=== PATIENT | male | born 1965 | race Caucasian/White ===

== ENCOUNTER 2023-07-13 21:34 | Emergency (ER) | payer OTHER, SELFPAY ==
[2023-07-13 21:37] VITALS: BP 140/68; BMI 30.9
[2023-07-13 22:00] VITALS: BP 114/79
--- NOTE | 2023-07-13 22:12 | ED.GENMED ---
History of Present Illness
General
Chief Complaint: Fall
Source: patient
Exam Limitations: none
Time Seen by Provider: 07/13/23 22:01
Travel History
Have you had any contact with someone who has COVID-19?: No
Do you have any symptoms of coronavirus? Fever > 100 degrees, chills, cough, shortness of breath, sore throat, loss of taste or smell, muscle aches, or headache?: No
History of Present Illness
History of Present Illness:
This is a 58 year old male that comes in by ambulance with c/o left hip pain. States that he was moving from his wheelchair to the toilet and he lost his balance. States that his body swang around and he landed beside his wheelchair on the floor.
States that there was no LOC. States that he has pain in the left hip. Denies any fever, chills, chest pain, SOB, abd pain, nausea, vomiting, diarrhea, headache, dizziness, urinaryu burning.
Past History
Past History
ED Past Medical History: Asthma, CAD, COPD, CVA (Left sided paralysis), HTN, Hypercholesterolemia, [place] (X 4), Psychiatric (Anxiety, Bipolar, Depression, Schizo) and Other (Previous stroke with left hemiparesis, Parkinson's, COPD, Neuropathy,
Fracture ortibs, Chronic back pain, )
ED Past Surgical History: Cardiac (Stents X 4), Orthopedic (Neck fusion, Right hand surgery, ) and Tonsilectomy
Social History
Tobacco: Former smoker
Alcohol: None
Personal:
Living: [facility] ([facility])
Family History
Family History: Other (Stroke)
Review of Systems
Review of Systems
All Other Systems: ROS reviewed and negative except as documented in HPI and ROS
Constitutional: Reports no symptoms; Denies fever or chills
EENT: Reports no symptoms
Respiratory: Reports no symptoms; Denies cough or trouble breathing
Cardiac: Reports no symptoms; Denies chest pain
ABD/GI: Reports no symptoms; Denies abdominal pain, nausea, vomiting or diarrhea
: Denies dysuria, frequency or urgency
Musculoskeletal: Reports joint pain (Left hip pain)
Skin: Reports no symptoms
Neurological: Reports no symptoms; Denies dizzy or headache
Psychiatric: Reports no symptoms
Phy Exam
General Physical Exam
General Presentation: no apparent distress
General age: appears stated age
General Skin: warm and dry
General Habitus: debilitated
General Mental: alert
General Hydration: dry mucous membranes
ENT Exam
ENT Exam: TM's normal, pharynx normal and neck supple
Eye Exam
Eye Exam: EOMI
Cardiovascular Exam
Cardiovascular Exam: regular rate/rhythm, no edema and normal peripheral pulses
Pulmonary Exam
Pulmonary Exam: lungs clear, no respiratory distress, no rales, chest non tender, no crackles, no rhonchi, no stridor, no wheezing and no cough
Gastrointestinal Exam
Gastrointestinal Exam: normal bowel sounds, non tender, soft, no organomegaly, no pulsatile mass and non distended
Musculoskeletal Exam
Musculoskeletal Exam: no edema and other (Negative for any discomfort with palpation over the hip or leg. Left leg is stiff but can bed the knee slightly. )
Skin Exam
Skin Exam: normal color, warm/dry, no rash and no petechia
Psychiatric Exam
Psychiatric Exam: normal mood/affect
Course
Orders/Labs/Results
Orders:
Orders
07/13/23 22:11
Hip, Left 2-3 Views [CR Hip - LT w/wo Pel 2-3 Vw*] Urgent
Comment:
Reason For Exam: fALL, PAIN
Include a pelvis x-ray?: Yes
07/13/23 22:14
CT Head W/o Iv Contrast Urgent
Comment:
Reason For Exam: Fall on Plavix
Vital Signs
Initial and Last Documented VS:
Initial Vital Signs
Temp Pulse Resp BP Pulse Ox
97.6 F 58 12 140/68 94
07/13/23 21:37 07/13/23 21:37 07/13/23 21:37 07/13/23 21:37 07/13/23 21:37
Last Documented Vital Signs
Temp Pulse Resp BP Pulse Ox
97.6 F 61 14 134/66 94
07/13/23 21:37 07/13/23 23:06 07/13/23 23:06 07/13/23 23:06 07/13/23 23:06
MDM/Problems Addressed
Differential Diagnosis Includes:
Accidental fall,
MDM/Problems Addressed:
This is a 58 year old male that was going from his wheelchair to the toilet and lost his balance and fell. States that he has pain in the left hip area.
Will get X-ray.
Back into see patient. Explained that the X-ray is negative for any fractures. Patient was able to get OOB and stand on the leg without any pain. Patient chronically uses a wheelchair. IF CT of head is normal, will dischrage patient back to
[facility].
Chronic conditions affecting care:
Left sided Paralysis from CVA
Acute Exacerbation and/or Progression of Chronic Illness:
Left sided paralysis.
*Radiology
Radiology exam reviewed: preliminary read by ED provider (Left hip - negative for fracture or dislocation), radiology read reviewed (CT head night hawk- No acute hemorrhage, midline shift or extra-axial collection. Encephalomalcia suggestive of
prior infarct around anterior right lateral ventricle extends into basal ganglia. Calvarium is intact. Moderate opacification ethmoid air cells bilaterally is new. Old left lamina propria ) and other (CT cont- old left propria fracture. Minimal
mastoid effusions bilaterally)
*Pulse Oximetry
Patient hypoxic: no
*EKG
Interpreted by ED Provider?: NA
Rate: EKG- N/A
*Curriculum And Instruction Specialist Interpretation
Rate: Curriculum And Instruction Specialist- N/A
*Critical Care Note
Total Time (30-74mins, 75-104mins- exclusive of procedures): Not Applicable
ED Attending Note
-
Portions of this chart may have been created with voice recognition software.� Occasional wrong word or��sound alike� substitutions may have occurred due to the inherent limitations of voice recognition software.
Discharge Plan
Departure
Patient Disposition: Home (Routine Discharge)
Date of Disposition: 07/13/23
Time of Disposition: 23:37
Patient with high blood pressure during this ER visit?: Yes
Condition: Good
Covid-19: Not Applicable
Discharge Problem:
Accidental fall
Instructions: Preventing falls in adults, BLOOD PRESSURE
Prescriptions:
No Action
acetaminophen 325 MG tablet
650 mg PO Q6HPRN PRN (Reason: fever > 100.4 and/or mild pain)
aspirin 81 MG tablet,chewable
81 mg PO DAILY
buspirone 5 MG tablet
15 mg PO BID
atorvastatin 80 MG tablet
80 mg PO QPM
venlafaxine 25 MG tablet
75 mg PO DAILY
isosorbide mononitrate 30 MG tablet extended release 24 hr
30 mg PO DAILY
melatonin 3 MG tablet
3 mg PO HS
clopidogrel 75 MG tablet
75 mg PO DAILY
magnesium hydroxide 30 ML suspension
30 ml PO DAILYPRN PRN (Reason: IF NO BM IN 3 DAYS)
tamsulosin 0.4 MG capsule
0.4 mg PO QPM
gemfibrozil 600 MG tablet
600 mg PO BID
bisacodyl [OneLAX Bisacodyl] 10 MG suppository
10 mg [place] DAILYPRN PRN (Reason: IF MOM INEFFECTIVE)
trazodone 150 MG tablet
150 mg PO HS
sodium phosphates [Enema] 135 ML enema
118 ml [place] DAILYPRN PRN (Reason: IF DULCOLAX INEFFECTIVE)
metoprolol succinate 25 MG tablet extended release 24 hr
25 mg PO DAILY
polyvinyl alcohol-povidon(PF) [Refresh Classic (PF)] 10 DROPS dropperette
2 drp BOTH EYES Q8HPRN PRN (Reason: DRY EYES)
bupropion HCl 300 MG tablet extended release 24 hr
300 mg PO DAILY
hydrochlorothiazide 25 MG tablet
25 mg PO DAILY
albuterol sulfate 1 PUFF HFA aerosol inhaler
2 puff inhalation R Q6HPRN PRN (Reason: sob/wheezing)
polyethylene glycol 3350 17 GRAMS powder in packet
17 grams PO DAILYPRN PRN (Reason: constipation)
tizanidine 4 MG tablet
4 mg PO Q6H
ondansetron HCl 4 MG tablet
4 mg PO Q6HPRN PRN (Reason: nausea/vomiting)
sennosides-docusate sodium 1 TABLET tablet
1 tab PO BID
calcium carbonate [Antacid (calcium carbonate)] 1 TABLET tablet,chewable
2 tab PO Q6HPRN PRN (Reason: indigestion)
nystatin [Nyamyc] 60 GM powder
1 applic topical BID
Saccharomyces boulardii 250 MG capsule
250 mg PO BID
Referrals:
Johnny Franco, [Family Provider] - Call in 1-3 days for appt
Activity Restrictions/Additional Instructions:
As discussed, you left hip and pelvis are negative for fracture. Your CT of the head is negative for any acute process. Please use your walker and wheelchair as directed. Follow up with the family doctor for recheck. IF YOU HAVE ANY OTHER CONCERNS
PLEASE RETURN TO THE EMEGENCY ROOM
Interventions
Interventions:
*Risk Screen - Suicide Last Done: 07/13/23 21:37
*General Assessment Last Done: 07/13/23 21:37
*Neglect/Abuse Screening Last Done: 07/13/23 21:37
*ED COVID-19 Vaccine History Last Done: 07/13/23 21:52
ED-Musculoskeletal Assessment Last Done: 07/13/23 21:52
ED- Neurological Assessment Last Done: 07/13/23 21:52
ED-Skin Assessment Last Done: 07/13/23 21:52
[2023-07-13 23:05] VITALS: BP 134/66
[2023-07-13 23:06] VITALS: BP 134/66
[2023-07-14] VITALS: BP 139/61
[2023-07-14 01:00] VITALS: BP 120/44
== END 2023-07-14 01:56 | disposition home or self-care (01) ==
LOC: EMR 21:34
PROVIDERS: EMERGENCY PHYSICIAN Student in an Organized Health Care Education/Training Program; FAMILY PHYSICIAN Internal Medicine
DX: M25.552 Pain in left hip (principal); W19.XXXA Unspecified fall, initial encounter; I10 Essential (primary) hypertension; Z87.891 Personal history of nicotine dependence; Z86.73 Personal history of transient ischemic attack (TIA), and cerebral infarction without residual deficits; Z82.3 Family history of stroke
CPT/HCPCS: 99284; 70450; 73502

== ENCOUNTER 2023-09-14 20:40 | Emergency (ER) | payer OTHER, SELFPAY ==
[2023-09-14 20:43] VITALS: BP 111/73; BMI 29.7
--- NOTE | 2023-09-14 21:18 | ED.GENMED ---
Addendum entered and electronically signed by Kb Cade PA-C 09/19/23 07:23:
Urine culture demonstrates greater than 100,000 colony-forming units of Staphylococcus. The result was sent to the patient's alf facility for their review
Original Note:
History of Present Illness
General
Chief Complaint: Flank Pain
Source: patient
Exam Limitations: none
Time Seen by Provider: 09/14/23 20:43
Nursing documentation reviewed up to this point in time: agreed with
Travel History
Have you had any contact with someone who has COVID-19?: No
Do you have any symptoms of coronavirus? Fever > 100 degrees, chills, cough, shortness of breath, sore throat, loss of taste or smell, muscle aches, or headache?: No
History of Present Illness
History of Present Illness:
58-year-old male from local senior care where is there for rehab originally from [place] had a stroke 15 or 16 years ago with left-sided plegia walks with a walker right flank pain fairly severe has had kidney stones, no fever no nausea vomiting
month or 2 ago had his hematuria tells me an ultrasound that was unremarkable, no heavy lifting no falls
Past History
Past History
ED Past Medical History: Asthma, CAD, COPD, CVA (Left sided paralysis), HTN, Hypercholesterolemia, [place] (X 4), Psychiatric (Anxiety, Bipolar, Depression, Schizo) and Other (Previous stroke with left hemiparesis, Parkinson's, COPD, Neuropathy,
Fracture ortibs, Chronic back pain, )
ED Past Surgical History: Cardiac (Stents X 4), Orthopedic (Neck fusion, Right hand surgery, ) and Tonsilectomy
Social History
Tobacco: Former smoker
Alcohol: None
Drug: None
Personal:
Living: senior care [facility])
Employment: Not employed
Family History
Family History: Other (Stroke)
Phy Exam
Physical Exam
Physical Exam:
Physical Exam
General: Nontoxic chronically ill-appearing male
Neck: No jaundice
Heart: Regular
Lungs: no acute respiratory distress.
Abdomen: Soft no guarding or rebound
Neuro: alert and oriented. Left-sided leg greater than arm weak
Skin: no rash
Psychiatric: cooperative
Extremities: no edema.
Course
Orders/Labs/Results
Orders:
Orders
09/14/23 20:52
Complete Blood Count/With Diff Urgent
Comprehensive Metabolic Panel Urgent
Lipase Urgent
09/14/23 21:00
CT Abd/pel Without Iv Or Oral Urgent
Comment:
Reason For Exam: r flank pain
09/14/23 22:07
Urinalysis Reflex To Culture Urgent
Date Specimen was Collected: 09/14/23
Time Specimen was Collected: 22:04
Urine Microscopic Reflex Cult Urgent
Urine Culture Urgent
BELTRAN Source: U
Specimen Description:
Date Specimen was Collected: 09/14/23
Time Specimen was Collected: 22:04
09/14/23 22:13
0.9% Sodium Chloride 500 ml [Nss] 500 ml IV BOLUS
Oxycodone [Roxicodone] 5 mg PO NOW STA
09/14/23 22:31
Dexamethasone Sod Phosphate [Decadron] 10 mg IV NOW STA
Abnormal Lab Results
09/14/23 09/14/23
20:52 22:07
RBC 4.31 L 10^6/uL
(4.70-6.10)
MCH 32.5 H pg
(27.0-31.0)
Abs Immat Gran (auto) 0.1 H 10^3/uL
(0-0.05)
Absolute Monos (auto) 0.7 H 10^3/uL
(0.1-0.6)
Immature Gran % 0.9 H %
(0-0.5)
Potassium 3.3 L mmol/L
(3.5-5.1)
BUN 28 H mg/dl
(9-20)
Glucose 121 H mg/dl
(70-99)
Urine Nitrite (Reflex) Positive A
(Negative)
Leukocyte Esterase Rfl 1+ A
(Negative)
09/14/23 20:52
09/14/23 20:52
Vital Signs
Initial and Last Documented VS:
Initial Vital Signs
Temp Pulse Resp BP Pulse Ox
98.0 F 61 18 111/73 97
09/14/23 20:43 09/14/23 20:43 09/14/23 20:43 09/14/23 20:43 09/14/23 20:43
Last Documented Vital Signs
Temp Pulse Resp BP Pulse Ox
98.0 F 61 18 111/73 97
09/14/23 20:43 09/14/23 20:43 09/14/23 20:43 09/14/23 20:43 09/14/23 20:43
MDM/Problems Addressed
Differential Diagnosis Includes:
Renal colic muscle strain spasm lumbago radiculopathy
MDM/Problems Addressed:
Right flank pain
Chronic conditions affecting care:
Stroke kidney stone
Chronic conditions affecting care: Neurological disorder and Psychiatric illness
Acute Exacerbation and/or Progression of Chronic Illness: Neurological disorder and Psychiatric illness
*Radiology
Radiology exam reviewed: preliminary read by ED provider
*Pulse Oximetry
Patient hypoxic: no
*Hand Tile Maker Interpretation
Rate: normal
Interpretation: normal
Heart Rate: 78
Rhythm: sinus
*Critical Care Note
Total Time (30-74mins, 75-104mins- exclusive of procedures): Not Applicable
Update Note
Update Note:
Update 10 PM vision radiology report reviewed see scanned copy for details--- in summary no obstructing stone prominent appendix with no secondary signs of appendicitis does have an unchanged L1 compression fracture with retrolisthesis
White blood count is normal, no tenderness of McBurney's point, he tells me he does have a history of herniated disks
Tells me his pain was in the midline at his spine
ED Attending Note
-
Portions of this chart may have been created with voice recognition software.� Occasional wrong word or��sound alike� substitutions may have occurred due to the inherent limitations of voice recognition software.
Discharge Plan
Departure
Patient Disposition: Skilled Nursing/SNF
Date of Disposition: 09/14/23
Time of Disposition: 22:32
Patient with high blood pressure during this ER visit?: No
Condition: Good
Covid-19: Not Applicable
Discharge Problem:
Back pain
Instructions: Low Back Pain ED
Prescriptions:
New
methylprednisolone [Medrol (Ambrose)] 4 mg tablets,dose pack
See Rx Instructions .ROUTE .COMPLEX Qty: 21 0RF
Rx Instructions:
for 6 days
No Action
acetaminophen 325 MG tablet
650 mg PO Q6HPRN PRN (Reason: fever > 100.4 and/or mild pain)
aspirin 81 MG tablet,chewable
81 mg PO DAILY
buspirone 5 MG tablet
15 mg PO BID
atorvastatin 80 MG tablet
80 mg PO QPM
venlafaxine 25 MG tablet
75 mg PO DAILY
isosorbide mononitrate 30 MG tablet extended release 24 hr
30 mg PO DAILY
melatonin 3 MG tablet
3 mg PO HS
clopidogrel 75 MG tablet
75 mg PO DAILY
magnesium hydroxide 30 ML suspension
30 ml PO DAILYPRN PRN (Reason: IF NO BM IN 3 DAYS)
tamsulosin 0.4 MG capsule
0.4 mg PO QPM
gemfibrozil 600 MG tablet
600 mg PO BID
bisacodyl [OneLAX Bisacodyl] 10 MG suppository
10 mg [place] DAILYPRN PRN (Reason: IF MOM INEFFECTIVE)
trazodone 150 MG tablet
150 mg PO HS
sodium phosphates [Enema] 135 ML enema
118 ml [place] DAILYPRN PRN (Reason: IF DULCOLAX INEFFECTIVE)
metoprolol succinate 25 MG tablet extended release 24 hr
25 mg PO DAILY
polyvinyl alcohol-povidon(PF) [Refresh Classic (PF)] 10 DROPS dropperette
2 drp BOTH EYES Q8HPRN PRN (Reason: DRY EYES)
bupropion HCl 300 MG tablet extended release 24 hr
300 mg PO DAILY
hydrochlorothiazide 25 MG tablet
25 mg PO DAILY
albuterol sulfate 1 PUFF HFA aerosol inhaler
2 puff inhalation R Q6HPRN PRN (Reason: sob/wheezing)
polyethylene glycol 3350 17 GRAMS powder in packet
17 grams PO DAILYPRN PRN (Reason: constipation)
tizanidine 4 MG tablet
4 mg PO Q6H
ondansetron HCl 4 MG tablet
4 mg PO Q6HPRN PRN (Reason: nausea/vomiting)
sennosides-docusate sodium 1 TABLET tablet
1 tab PO BID
calcium carbonate [Antacid (calcium carbonate)] 1 TABLET tablet,chewable
2 tab PO Q6HPRN PRN (Reason: indigestion)
nystatin [Nyamyc] 60 GM powder
1 applic topical BID
Saccharomyces boulardii 250 MG capsule
250 mg PO BID
Referrals:
Johnny Franco DO [Family Provider] -
Interventions
Interventions:
*Risk Screen - Suicide Last Done: 09/14/23 20:43
*General Assessment Last Done: 09/14/23 20:43
*Neglect/Abuse Screening Last Done: 09/14/23 20:43
ED- Fall Risk Assessment Last Done: 09/14/23 20:47
CO-Rwlmey-Fvlsjkafwq Assessment Last Done: 09/14/23 20:49
ED-Male Genitourinary Assessment Last Done: 09/14/23 20:50
Discharge Date and Time
Print Language: AMHARIC
[2023-09-14 21:19] LABS: % Basophils 0.8 % (0-2); % Eosinophils 3.8 % (0-6); % Immature Granulocytes 0.9 % (0-0.5); % Monocytes 8.2 % (1.7-9.3); % Neutrophils 54.3 % (42.2-75.2); Absolute Basophils 0.1 10^3/uL (0-0.2); Absolute Eosinophils 0.3 10^3/uL (0-0.7); Absolute Immature Granulocytes 0.1 10^3/uL (0-0.05); Absolute Lymphocytes 2.5 10^3/uL (1.2-3.4); Absolute Monocytes 0.7 10^3/uL (0.1-0.6); Absolute Neutrophils 4.3 10^3/uL (1.4-6.5); Hematocrit 39.5 % (39.0-52.0); Mean Corp Hgb Conc. 35.4 g/dL (33.0-37.0); Mean Corpuscular Hgb 32.5 pg (27.0-31.0); Mean Corpuscular Volume 91.6 fL (80.0-94.0); Mean Platelet Volume 10.3 fL (7.4-10.4); Nucleated Red Blood Cells % 0 % (-); Platelet Count 240 10^3/uL (130-400); Red Blood Cell Count 4.31 10^6/uL (4.70-6.10); Red Cell Dist. Width 12.8 % (11.5-14.5); White Blood Cell Count 7.9 10^3/uL (4.8-10.8)
[2023-09-14 21:30] LABS: ALT (SGPT) 30 U/L (0-50); AST (SGOT) 40 U/L (17-59); Alkaline Phosphatase 49 U/L (38-126); Blood Urea Nitrogen 28 mg/dl (9-20); Calcium 9.6 mg/dl (8.4-10.2); Carbon Dioxide 24 mmol/L (22-30); Chloride 101 mmol/L (98-107); Estimated Creatinine Clearance 119 ml/min; Glucose 121 mg/dl (70-99); Lipase 35 U/L (23-300); Potassium 3.3 mmol/L (3.5-5.1); Sodium 137 mmol/L (135-145); Total Bilirubin 0.7 mg/dl (0.2-1.3); Total Protein 6.8 g/dl (6.3-8.2); eGFR > 60.00
[2023-09-14 22:07] VITALS: BP 120/77
[2023-09-14 22:14] LABS: Urine Albumin Negative (Neg - Trace); Urine Bilirubin Negative (Negative); Urine Character Clear (Clear); Urine Color Yellow; Urine Glucose Negative (Negative); Urine Ketone Negative (Negative); Urine Leukocyte 1+ (Negative); Urine Nitrite Positive (Negative); Urine Occult Blood Negative (Negative); Urine Specific Gravity 1.015 (<1.030); Urine Urobilinogen 1+ (Neg - 1+)
[2023-09-14] MEDS: DECADRON 10 MG IV (22:45)
[2023-09-14] MEDS: ROXICODONE 5 MG PO (22:45)
[2023-09-14] MEDS: NSS 500 IV (22:46)
[2023-09-14 23:00] VITALS: BP 108/62
[2023-09-14 23:11] LABS: Urine Hyaline Cast 0-2 /LPF (0-2); Urine Yeast Few (Negative)
== END 2023-09-15 00:51 ==
LOC: EMR 20:40
PROVIDERS: EMERGENCY PHYSICIAN Emergency Medicine; FAMILY PHYSICIAN Internal Medicine
DX: M54.9 Dorsalgia, unspecified (principal); R10.9 Unspecified abdominal pain; I69.354 Hemiplegia and hemiparesis following cerebral infarction affecting left non-dominant side; I25.10 Atherosclerotic heart disease of native coronary artery without angina pectoris; J45.909 Unspecified asthma, uncomplicated; E78.00 Pure hypercholesterolemia, unspecified; G20.A1 Parkinson's disease without dyskinesia, without mention of fluctuations; I10 Essential (primary) hypertension; F41.9 Anxiety disorder, unspecified; F20.9 Schizophrenia, unspecified; F31.9 Bipolar disorder, unspecified; F32.A Depression, unspecified; G62.9 Polyneuropathy, unspecified; M51.25 Other intervertebral disc displacement, thoracolumbar region; I25.2 Old myocardial infarction; M43.22 Fusion of spine, cervical region; Z95.5 Presence of coronary angioplasty implant and graft; Z87.442 Personal history of urinary calculi; Z87.891 Personal history of nicotine dependence
CPT/HCPCS: 99284; 74176; 80053; 81003; 81015; 83690; 85025; 87086; 87147; 87186

== ENCOUNTER 2023-10-28 01:16 | Emergency (ER) | payer OTHER, SELFPAY ==
[2023-10-28 01:16] VITALS: BMI 29.2
[2023-10-28 01:21] VITALS: BP 105/56
--- NOTE | 2023-10-28 01:25 | ED.GENMED ---
History of Present Illness
<FERNANDO Duarte - Last Filed: 10/28/23 03:24>
General
Chief Complaint: Fall
Source: patient and ambulance crew
Exam Limitations: none
Time Seen by Provider: 10/28/23 01:19
Nursing documentation reviewed up to this point in time: agreed with
History of Present Illness
History of Present Illness:
58 year old male presents for evaluation of a fall. Pt notes that he is a resident a [facility] rehab, and states that approximately 2 hours ago he was transferring from his bed to his wheelchair when he fell forward and hit his head on the floor.
Pt has a small superficial laceration above his left eyebrow. He endorses a small amount of bleeding from the laceration at the time of the fall, but bleeding has been controlled with a BandAid. Pt is on Plavix 75 mg daily. He primarily uses a
wheelchair day-to-day due to history of CVA but occasionally uses a walker. Pt reports that he has fallen 3-4 times over 4 years at [facility]. Pt endorses mild DIAZ, but denies N/V, dizziness, loss of consciousness, photophobia, and changes in
vision. Last tetanus vaccine was 5 years ago per pt.
Past History
<FERNANDO Duarte - Last Filed: 10/28/23 03:24>
Past History
ED Past Medical History: Asthma, CAD, COPD, CVA (Left sided paralysis), HTN, Hypercholesterolemia, [place] (X 4), Psychiatric (Anxiety, Bipolar, Depression, Schizo) and Other (Previous stroke with left hemiparesis, Parkinson's, COPD, Neuropathy,
Fracture ortibs, Chronic back pain, )
ED Past Surgical History: Cardiac (Stents X 4), Orthopedic (Neck fusion, Right hand surgery, ) and Tonsilectomy
Social History
Tobacco: Former smoker
Alcohol: None
Drug: None
Personal:
Living: intermediate ([facility])
Employment: Not employed
Family History
Family History: Other (Stroke)
Review of Systems
<FERNANDO Duarte - Last Filed: 10/28/23 03:24>
Review of Systems
Allergies reviewed?: Yes
Other source history: ambulance crew
Constitutional: Reports no symptoms
EENT: Reports no symptoms
Respiratory: Reports no symptoms
Cardiac: Reports no symptoms
ABD/GI: Reports no symptoms
: Reports no symptoms
Musculoskeletal: Reports no symptoms
Skin: Reports no symptoms
Neurological: Reports headache
Phy Exam
<FERNANDO Duarte - Last Filed: 10/28/23 03:24>
General Physical Exam
General Presentation: well appearing
General age: appears stated age
General Skin: warm
General Habitus: debilitated
General Mental: alert
General Hydration: appears well hydrated
Eye Exam
Eye Exam: PERRL and EOMI
Cardiovascular Exam
Cardiovascular Exam: regular rate/rhythm
Pulmonary Exam
Pulmonary Exam: lungs clear and no respiratory distress
Neurological Exam
Neurological Exam: alert, oriented x3 and motor weakness (L side )
Skin Exam
Skin Exam: laceration (1 cm superficial laceration on pt's L superficial eyebrow.)
Course
<FERNANDO Duarte - Last Filed: 10/28/23 03:24>
Orders/Labs/Results
Orders:
Orders
10/28/23 01:59
CT Head W/o Iv Contrast Urgent
Comment:
Reason For Exam: fall onto head
10/28/23 02:38
Wound Dressing- Treatment ONCE
Location of Wound: left brow
Treatment of Wound: bacitracin bandaid
Vital Signs
Initial and Last Documented VS:
Initial Vital Signs
Temp Pulse Resp BP Pulse Ox
97.6 F 51 16 105/56 96
10/28/23 01:10/28/23 01:10/28/23 01:10/28/23 01:10/28/23 01:21
Last Documented Vital Signs
Temp Pulse Resp BP Pulse Ox
97.6 F 51 16 105/56 96
10/28/23 01:10/28/23 01:10/28/23 01:10/28/23 01:10/28/23 01:21
<Glenda Doss DO - Last Filed: 10/28/23 02:47>
Orders/Labs/Results
Orders:
Orders
10/28/23 01:59
CT Head W/o Iv Contrast Urgent
Comment:
Reason For Exam: fall onto head
10/28/23 02:38
Wound Dressing- Treatment ONCE
Location of Wound: left brow
Treatment of Wound: bacitracin bandaid
Vital Signs
Initial and Last Documented VS:
Initial Vital Signs
Temp Pulse Resp BP Pulse Ox
97.6 F 51 16 105/56 96
10/28/23 01:21 10/28/23 01:10/28/23 01:10/28/23 01:10/28/23 01:21
Last Documented Vital Signs
Temp Pulse Resp BP Pulse Ox
97.6 F 51 16 105/56 96
10/28/23 01:21 10/28/23 01:10/28/23 01:10/28/23 01:10/28/23 01:21
<FERNANDO Duarte - Last Filed: 10/28/23 03:24>
MDM/Problems Addressed
Differential Diagnosis Includes:
left superior eyebrow laceration
<Glenda Doss DO - Last Filed: 10/28/23 02:47>
*Radiology
Radiology exam reviewed: radiology read reviewed (CT of the head shows no acute traumatic finding. There is evidence of an old right MCA territory infarct with associated encephalomalacia. No skull fracture.)
*Pulse Oximetry
Patient hypoxic: no
*Critical Care Note
Total Time (30-74mins, 75-104mins- exclusive of procedures): Not Applicable
<FERNANDO Duarte - Last Filed: 10/28/23 03:24>
Update Note
Update Note:
0245 - CT head w/o contrast shows no acute traumatic findings. No skull fracture.
ED Attending Note
<FERNANDO Duarte - Last Filed: 10/28/23 03:24>
-
Portions of this chart may have been created with voice recognition software.� Occasional wrong word or��sound alike� substitutions may have occurred due to the inherent limitations of voice recognition software.
<Glenda Doss DO - Last Filed: 10/28/23 02:47>
ED Attending Note
Patient seen and examined by attending physician: Yes
I performed the substantive portion of visit, reviewed & personally made and approve the management plan that is documented in note by myself or ROBINSON.: Yes
ED Attending Note:
This is a 58-year-old gentleman, resident of a local intermediate. He has prior history of stroke, CAD, COPD, chronic back pain, chronically maintained on Plavix and low-dose aspirin. After suffering CVA he has chronic left hemiparesis, primarily
wheelchair-bound and tonight while attempting to transfer from the bed to the wheelchair, he leaned forward, lost his balance falling forward striking his left forehead on the ground. No loss of consciousness. He sent to the ED by intermediate for
evaluation.
He does admit to very mild headache and has sustained head superficial laceration left forehead. No active bleeding.
He denies nausea nor vomiting, denies neck nor back pain, denies extremity pain. He denies dizziness nor lightheadedness.
TRAUMA EXAM:
VITAL SIGNS: Vital signs reviewed, cooperative
DISTRESS: No active disease
EYES: Pupils reactive, no orbital trauma
NOSE: No deformity or epistaxis
FACE AND SCALP: Left superior brow has a superficial abrasion with a very superficial 1 cm laceration that has well-approximated wound edges. No active bleeding. Minimal local tenderness to palpation. No hematoma or soft tissue swelling.
External canals no blood
NECK: Supple nontender
BACK: Back nontender, pelvis stable to compression
RESPIRATORY: No distress, breath sounds normal, no tender chest wall
CARDIAC: No murmur, pulses equal and strong
ABDOMEN: Soft nontender bowel sounds normal
SKIN: Skin intact no bleeding, color normal
EXTREMITIES: Nontender
NEUROLOGICAL: Alert, oriented, no motor deficits
PSYCH: Mood affect normal
As patient chronically maintained on Plavix, closed head injury will check CT of the head�concern for intracranial bleeding.
He remains awake and alert. Mild left hemiparesis is stable and unchanged.
Left brow abrasion and very superficial laceration has wound edges that are well-approximated, not in need of surgical repair. Will plan on bacitracin and Band-Aid.
Discharge Plan
Departure
Patient Disposition: Retirement/SNF
Date of Disposition: 10/28/23
Time of Disposition: 02:45
Patient with high blood pressure during this ER visit?: No
Condition: Good
Discharge Problem:
mechanical fall at intermediate, Contusion of forehead
Instructions: Head Injury in Adults (DC), Contusion (DC), Preventing falls in adults
Prescriptions:
No Action
acetaminophen 325 MG tablet
650 mg PO Q6HPRN PRN (Reason: fever > 100.4 and/or mild pain)
aspirin 81 MG tablet,chewable
81 mg PO DAILY
buspirone 5 MG tablet
15 mg PO BID
atorvastatin 80 MG tablet
80 mg PO QPM
venlafaxine 25 MG tablet
75 mg PO DAILY
isosorbide mononitrate 30 MG tablet extended release 24 hr
30 mg PO DAILY
melatonin 3 MG tablet
3 mg PO HS
clopidogrel 75 MG tablet
75 mg PO DAILY
magnesium hydroxide 30 ML suspension
30 ml PO DAILYPRN PRN (Reason: IF NO BM IN 3 DAYS)
tamsulosin 0.4 MG capsule
0.4 mg PO QPM
gemfibrozil 600 MG tablet
600 mg PO BID
bisacodyl [OneLAX Bisacodyl] 10 MG suppository
10 mg OH DAILYPRN PRN (Reason: IF MOM INEFFECTIVE)
trazodone 150 MG tablet
150 mg PO HS
sodium phosphates [Enema] 135 ML enema
118 ml [place] DAILYPRN PRN (Reason: IF DULCOLAX INEFFECTIVE)
metoprolol succinate 25 MG tablet extended release 24 hr
25 mg PO DAILY
polyvinyl alcohol-povidon(PF) [Refresh Classic (PF)] 10 DROPS dropperette
2 drp BOTH EYES Q8HPRN PRN (Reason: DRY EYES)
bupropion HCl 300 MG tablet extended release 24 hr
300 mg PO DAILY
hydrochlorothiazide 25 MG tablet
25 mg PO DAILY
albuterol sulfate 1 PUFF HFA aerosol inhaler
2 puff inhalation R Q6HPRN PRN (Reason: sob/wheezing)
polyethylene glycol 3350 17 GRAMS powder in packet
17 grams PO DAILYPRN PRN (Reason: constipation)
tizanidine 4 MG tablet
4 mg PO Q6H
ondansetron HCl 4 MG tablet
4 mg PO Q6HPRN PRN (Reason: nausea/vomiting)
sennosides-docusate sodium 1 TABLET tablet
1 tab PO BID
calcium carbonate [Antacid (calcium carbonate)] 1 TABLET tablet,chewable
2 tab PO Q6HPRN PRN (Reason: indigestion)
nystatin [Nyamyc] 60 GM powder
1 applic topical BID
Saccharomyces boulardii 250 MG capsule
250 mg PO BID
methylprednisolone [Medrol (Ambrose)] 4 mg tablets,dose pack
See Rx Instructions .ROUTE .COMPLEX Qty: 21 0RF
Rx Instructions:
for 6 days
Referrals:
Johnny Franco, [Family Provider] - Call in 1-3 days for appt
Interventions
Interventions:
*Risk Screen - Suicide Last Done: 10/28/23 01:21
*General Assessment Last Done: 10/28/23 01:21
*Neglect/Abuse Screening Last Done: 10/28/23 01:21
ED- Fall Risk Assessment Last Done: 10/28/23 01:21
*ED COVID-19 Vaccine History Last Done: 10/28/23 01:21
ED-Musculoskeletal Assessment Last Done: 10/28/23 01:35
ED- Neurological Assessment Last Done: 10/28/23 01:35
ED-Skin Assessment Last Done: 10/28/23 01:35
Discharge Date and Time
Print Language: SAMI
[2023-10-28 04:40] VITALS: BP 139/70
== END 2023-10-28 04:40 ==
LOC: EMR 01:16
PROVIDERS: EMERGENCY PHYSICIAN Emergency Medicine; FAMILY PHYSICIAN Internal Medicine
DX: S00.83XA Contusion of other part of head, initial encounter (principal); W19.XXXA Unspecified fall, initial encounter
CPT/HCPCS: 99284; 70450

== ENCOUNTER 2024-01-14 17:33 | Emergency (ER) | payer OTHER, SELFPAY ==
[2024-01-14 17:38] VITALS: BP 131/63
[2024-01-14 17:54] LABS: % Basophils 0.5 % (0-2); % Eosinophils 3.8 % (0-6); % Immature Granulocytes 0.5 % (0-0.5); % Lymphocytes 35.1 % (20.5-51.1); % Monocytes 9.8 % (1.7-9.3); % Neutrophils 50.3 % (42.2-75.2); Absolute Eosinophils 0.2 10^3/uL (0-0.7); Absolute Monocytes 0.6 10^3/uL (0.1-0.6); Absolute Neutrophils 2.8 10^3/uL (1.4-6.5); Hematocrit 41.2 % (39.0-52.0); Hemoglobin 14.5 g/dL (13.0-18.0); Mean Corp Hgb Conc. 35.2 g/dL (33.0-37.0); Mean Corpuscular Hgb 31.3 pg (27.0-31.0); Mean Platelet Volume 9.7 fL (7.4-10.4); Nucleated Red Blood Cells % 0 % (-); Platelet Count 223 10^3/uL (130-400); Red Blood Cell Count 4.63 10^6/uL (4.70-6.10); White Blood Cell Count 5.6 10^3/uL (4.8-10.8)
[2024-01-14 18:00] VITALS: BP 126/77
--- NOTE | 2024-01-14 18:16 | ED.MUSCINJ ---
HPI-Injury
General
Chief Complaint: Fall
Source: patient, ambulance crew and correction
Exam Limitations: none
Time Seen by Provider: 01/14/24 17:36
Nursing documentation reviewed up to this point in time: agreed with
History of Present Illness-Injury
Is this injury a work related problem?: No
Is pt an associate of [facility]?: No
Initial Injury comments:
Patient to ED from [facility] s/p fall. States he was attempting to shuffle sideways between his bed and roomates bed and his feet became tangled and he fell. Hx of CVA. Wears brace on LLE. Hit head on floor. No LOC. Complains of pain to low back, right
hip. Injury occurred just BELT SEWER. to ED via EMS
Past History
Past History
ED Past Medical History: Asthma, CAD, COPD, CVA (Left sided paralysis), HTN, Hypercholesterolemia, [place] (X 4), Psychiatric (Anxiety, Bipolar, Depression, Schizo) and Other (Previous stroke with left hemiparesis, Parkinson's, COPD, Neuropathy,
Fracture ortibs, Chronic back pain, )
ED Past Surgical History: Cardiac (Stents X 4), Orthopedic (Neck fusion, Right hand surgery, ) and Tonsilectomy
Social History
Tobacco: Former smoker
Alcohol: None
Drug: None
Personal:
Living: correction ([facility])
Employment: Not employed
Family History
Family History: Other (Stroke)
Review of Systems
Review of Systems
Allergies reviewed?: Yes
All Other Systems: ROS reviewed and negative except as documented in HPI and ROS
Constitutional: Reports no symptoms
EENT: Reports no symptoms
Respiratory: Reports no symptoms
Cardiac: Reports no symptoms
ABD/GI: Reports no symptoms
: Reports no symptoms
Musculoskeletal: Reports joint pain (pain to low back, right hip)
Skin: Reports no symptoms
Neurological: Reports no symptoms
Psychiatric: Reports no symptoms
Musculoskeletal Injury Exam
Musculoskeletal Injury Exam
Lower Back:
Pain with Movement?: Moderate
Tender to palpation?: Moderate
Soft tissue swelling?: None
External deformity and angulation?: None
Joint effusion?: None
Contusion?: Moderate
Hematoma-local bleeding into tissue?: None
Strain- Sprain- Tear (Connective tissue injury)?: None
Crepitus with movement?: No
Joint instability?: No
Malalignment/deformity?: No
Range of motion: Limited
Distal skin color and temperature: normal-warm & good color
Capillary Refill: normal
Normal distal neurovascular exam?: Yes
Right Hip:
Pain with Movement?: Moderate
Tender to palpation?: Moderate
Soft tissue swelling?: None
External deformity and angulation?: None
Joint effusion?: None
Contusion?: Moderate
Hematoma-local bleeding into tissue?: None
Strain- Sprain- Tear (Connective tissue injury)?: Moderate
Crepitus with movement?: No
Joint instability?: No
Malalignment/deformity?: No
Range of motion: Full
Distal skin color and temperature: normal-warm & good color
Capillary Refill: normal
Normal distal neurovascular exam?: Yes
Phy Exam
General Physical Exam
General Presentation: well appearing
General age: appears stated age
General Skin: warm
General Habitus: normal
General Mental: alert
General Hydration: appears well hydrated
Cardiovascular Exam
Cardiovascular Exam: regular rate/rhythm and no edema
Pulmonary Exam
Pulmonary Exam: no respiratory distress and chest non tender
Neurological Exam
Neurological Exam: alert, oriented x3, CN II-XII intact and speech normal
[place] Coma Scale
Eye Opening: Spontaneous
Verbal Response: Oriented
Motor Response: Obeys Commands
GCS Total Score: 15
Musculoskeletal Exam
Musculoskeletal Exam: neuro vasc intact
Skin Exam
Skin Exam: normal color, warm/dry and no rash
Psychiatric Exam
Psychiatric Exam: normal mood/affect
Injury Course
Orders/Labs/Results
Orders:
Orders
01/14/24 17:48
CBC/With Diff [Complete Blood Count/With Diff] Urgent
CMP [Comprehensive Metabolic Panel] Urgent
01/14/24 17:58
CT Head W/o Iv Contrast Urgent
Comment:
Reason For Exam: trauma
Hip, Right 2-3 Views [CR Hip - RT w/wo Pel 2-3 Vw*] Urgent
Comment:
Reason For Exam: fall,pain
Include a pelvis x-ray?: Yes
01/14/24 18:15
HYDROmorphone [Dilaudid] 0.5 mg IV NOW STA
Ondansetron Injectable [Zofran] 4 mg IV NOW STA
Lumbar Spine Complete, 4 View [CR Lumbar Spine Comp Min 4 Vw*] Urgent
Comment:
Reason For Exam: fall
Abnormal Lab Results
01/14/24
17:48
RBC 4.63 L 10^6/uL
(4.70-6.10)
MCH 31.3 H pg
(27.0-31.0)
Monocytes % 9.8 H %
(1.7-9.3)
Potassium 3.4 L mmol/L
(3.5-5.1)
BUN 22 H mg/dl
(9-20)
01/14/24 17:48
01/14/24 17:48
*Radiology
Radiology exam reviewed: radiology read reviewed
*Pulse Oximetry
Patient hypoxic: no
*Critical Care Note
Total Time (30-74mins, 75-104mins- exclusive of procedures): Not Applicable
ED Attending Note
-
Portions of this chart may have been created with voice recognition software.� Occasional wrong word or��sound alike� substitutions may have occurred due to the inherent limitations of voice recognition software.
Discharge Plan
Departure
Patient Disposition: Intermediate/SNF
Date of Disposition: 01/14/24
Time of Disposition: 20:02
Patient with high blood pressure during this ER visit?: No
Condition: Good
Covid-19: Not Applicable
Discharge Problem:
Back pain, Head injury
Instructions: Head Injury in Adults (DC), Preventing falls in adults, Back Pain
Prescriptions:
No Action
acetaminophen 325 MG tablet
650 mg PO Q6HPRN PRN (Reason: fever > 100.4 and/or mild pain)
aspirin 81 MG tablet,chewable
81 mg PO DAILY
buspirone 5 MG tablet
15 mg PO BID
atorvastatin 80 MG tablet
80 mg PO QPM
venlafaxine 25 MG tablet
75 mg PO DAILY
isosorbide mononitrate 30 MG tablet extended release 24 hr
30 mg PO DAILY
melatonin 3 MG tablet
3 mg PO HS
clopidogrel 75 MG tablet
75 mg PO DAILY
magnesium hydroxide 30 ML suspension
30 ml PO DAILYPRN PRN (Reason: IF NO BM IN 3 DAYS)
tamsulosin 0.4 MG capsule
0.4 mg PO QPM
gemfibrozil 600 MG tablet
600 mg PO BID
bisacodyl [OneLAX Bisacodyl] 10 MG suppository
10 mg MN DAILYPRN PRN (Reason: IF MOM INEFFECTIVE)
trazodone 150 MG tablet
150 mg PO HS
sodium phosphates [Enema] 135 ML enema
118 ml MN DAILYPRN PRN (Reason: IF DULCOLAX INEFFECTIVE)
metoprolol succinate 25 MG tablet extended release 24 hr
25 mg PO DAILY
polyvinyl alcohol-povidon(PF) [Refresh Classic (PF)] 10 DROPS dropperette
2 drp BOTH EYES Q8HPRN PRN (Reason: DRY EYES)
bupropion HCl 300 MG tablet extended release 24 hr
300 mg PO DAILY
hydrochlorothiazide 25 MG tablet
25 mg PO DAILY
albuterol sulfate 1 PUFF HFA aerosol inhaler
2 puff inhalation R Q6HPRN PRN (Reason: sob/wheezing)
polyethylene glycol 3350 17 GRAMS powder in packet
17 grams PO DAILYPRN PRN (Reason: constipation)
tizanidine 4 MG tablet
4 mg PO Q6H
ondansetron HCl 4 MG tablet
4 mg PO Q6HPRN PRN (Reason: nausea/vomiting)
sennosides-docusate sodium 1 TABLET tablet
1 tab PO BID
calcium carbonate [Antacid (calcium carbonate)] 1 TABLET tablet,chewable
2 tab PO Q6HPRN PRN (Reason: indigestion)
nystatin [Nyamyc] 60 GM powder
1 applic topical BID
Saccharomyces boulardii 250 MG capsule
250 mg PO BID
methylprednisolone [Medrol (Ambrose)] 4 mg tablets,dose pack
See Rx Instructions .ROUTE .COMPLEX Qty: 21 0RF
Rx Instructions:
for 6 days
Referrals:
Johnny Franco DO [Family Provider] - Follow up in 2-3 days
Interventions
Interventions:
*Risk Screen - Suicide Last Done: 01/14/24 17:38
*General Assessment Last Done: 01/14/24 17:38
*Neglect/Abuse Screening Last Done: 01/14/24 17:38
*ED COVID-19 Vaccine History Last Done: 01/14/24 17:52
ED-Musculoskeletal Assessment Last Done: 01/14/24 17:52
ED- Neurological Assessment Last Done: 01/14/24 17:52
ED-Skin Assessment Last Done: 01/14/24 17:52
Discharge Date and Time
Print Language: FAROESE
[2024-01-14 18:20] LABS: ALT (SGPT) 42 U/L (0-50); AST (SGOT) 48 U/L (17-59); Albumin 4.2 g/dl (3.5-5.0); Alkaline Phosphatase 71 U/L (38-126); Blood Urea Nitrogen 22 mg/dl (9-20); Calcium 9.8 mg/dl (8.4-10.2); Carbon Dioxide 26 mmol/L (22-30); Chloride 100 mmol/L (98-107); Estimated Creatinine Clearance 104 ml/min; Glucose 84 mg/dl (70-99); Potassium 3.4 mmol/L (3.5-5.1); Sodium 139 mmol/L (135-145); Total Bilirubin 0.5 mg/dl (0.2-1.3); Total Protein 6.7 g/dl (6.3-8.2); eGFR > 60.00
[2024-01-14] MEDS: ZOFRAN 4 MG IV (18:24)
[2024-01-14] MEDS: DILAUDID 0.5 MG IV (18:25)
[2024-01-14 19:26] VITALS: BP 116/66
[2024-01-14 20:24] VITALS: BP 128/70
[2024-01-14 21:00] VITALS: BP 129/72
== END 2024-01-14 22:04 ==
LOC: EMR 17:33
PROVIDERS: Nurse Practitioner; EMERGENCY PHYSICIAN Student in an Organized Health Care Education/Training Program; FAMILY PHYSICIAN Internal Medicine
DX: S09.90XA Unspecified injury of head, initial encounter (principal); M54.50 Low back pain, unspecified; W19.XXXA Unspecified fall, initial encounter; J45.909 Unspecified asthma, uncomplicated; I25.10 Atherosclerotic heart disease of native coronary artery without angina pectoris; J44.9 Chronic obstructive pulmonary disease, unspecified; I10 Essential (primary) hypertension; E78.00 Pure hypercholesterolemia, unspecified; I25.2 Old myocardial infarction; F41.9 Anxiety disorder, unspecified; F31.9 Bipolar disorder, unspecified; G20.A1 Parkinson's disease without dyskinesia, without mention of fluctuations
CPT/HCPCS: 99284; 96374; 96375; 70450; 72110; 73502; 80053; 85025

== ENCOUNTER 2024-03-20 19:53 | Emergency (ER) | payer OTHER, SELFPAY ==
[2024-03-20 19:54] VITALS: BP 122/67
--- NOTE | 2024-03-20 20:38 | ED.GENMED ---
History of Present Illness
General
Chief Complaint: Head Injury
Source: patient
Exam Limitations: none
Time Seen by Provider: 03/20/24 20:37
Nursing documentation reviewed up to this point in time: agreed with
History of Present Illness
History of Present Illness:
58-year-old male with a past medical history of Parkinson's, left-sided paralysis wheelchair-bound at baseline, COPD, bipolar disorder presents emergency department today with concerns of left-sided headache and neck pain following a fall. Patient
reports that he was at [facility] and was transferring himself out of his wheelchair into a chair by the window and he felt his left leg gave out and he lost his footing and he subsequently fell, hitting his head on the left side. Patient states
that the nurse helped him up and put him back into his wheelchair. He subsequently called 911. He did not have any loss of consciousness. He denies chest pain or shortness of breath. He denies any pain in his leg or upper extremity. He does not
have any back pain, abdominal pain.
Past History
Past History
ED Past Medical History: Asthma, CAD, COPD, CVA (Left sided paralysis), HTN, Hypercholesterolemia, MS (X 4), Psychiatric (Anxiety, Bipolar, Depression, Schizo) and Other (Previous stroke with left hemiparesis, Parkinson's, COPD, Neuropathy,
Fracture ortibs, Chronic back pain, )
ED Past Surgical History: Cardiac (Stents X 4), Orthopedic (Neck fusion, Right hand surgery, ) and Tonsilectomy
Social History
Tobacco: Former smoker
Alcohol: None
Drug: None
Personal:
Living: alf ([facility])
Employment: Not employed
Family History
Family History: Other (Stroke)
Review of Systems
Review of Systems
All Other Systems: ROS reviewed and negative except as documented in HPI and ROS
Phy Exam
Physical Exam
Physical Exam:
General: Patient is well appearing and in no acute distress; non-toxic
Skin: Warm and dry, no rashes or lesions
Head: Normocephalic, atraumatic
Eyes: Sclera non-icteric. EOMs intact.
Cardiac: Regular rate and rhythm, no tenderness palpation of external chest wall
Peripheral Vascular: No lower extremity swelling or edema
Pulm: Normal respiratory effort
Abdomen: No abdominal tenderness to palpation, no ecchymosis or signs of
Musculoskeletal: No palpable bony tenderness of the left lower extremity, no pain with passive range of motion
Neuro: CN II-XII intact, no focal neurologic deficits.
Psychiatric: Appropriate mood and affect.
Course
Orders/Labs/Results
Orders:
Orders
03/20/24 20:40
CT Cervical Spine W/o Iv Contr Urgent
Comment:
Reason For Exam: left sided head trauma
CT Head W/o Iv Contrast Urgent
Comment:
Reason For Exam: left sided head trauma
03/20/24 21:27
Acetaminophen [Tylenol] 1,000 mg PO NOW STA
Vital Signs
Initial and Last Documented VS:
Initial Vital Signs
Temp Pulse Resp BP Pulse Ox
98.1 F 72 16 122/67 100
03/20/24 19:54 03/20/24 19:54 03/20/24 19:54 03/20/24 19:54 03/20/24 19:54
Last Documented Vital Signs
Temp Pulse Resp BP Pulse Ox
98.1 F 72 16 122/67 100
03/20/24 19:54 03/20/24 19:54 03/20/24 19:54 03/20/24 19:54 03/20/24 19:54
MDM/Problems Addressed
Differential Diagnosis Includes:
Differentials include tension headache, migraine headache, epidural hematoma , subdural hematoma, cervical strain
MDM/Problems Addressed:
58-year-old male with a past medical history of Parkinson's, left-sided paralysis wheelchair-bound at baseline, COPD, bipolar disorder presents emergency department today with concerns of left-sided headache and neck pain following a fall. He fell
while transferring himself into a chair from a wheelchair. He has left-sided paralysis and lost his footing on the left side. On physical exam, he has no neurologic deficits, no signs of head or neck trauma, does have tenderness palpation in the
cervical spine. He got a CAT scan of the head and neck which showed no acute intracranial abnormality, no evidence of cervical spinal fracture. Admit not indicated, patient stable for discharge, discussed return precautions with patient. Patient
given Tylenol for pain.
Chronic conditions affecting care:
Left-sided paralysis, Parkinson's
*Pulse Oximetry
Patient hypoxic: no
*Critical Care Note
Total Time (30-74mins, 75-104mins- exclusive of procedures): Not Applicable
Data Reviewed
Review of Other/Old Records Reveals: Records (Reviewed previous ER physician documentation from 10/28/2023, patient seen for contusion of head when he fell.)
Source: patient and records
Patient Management
Escalation/DeEscalation of care consider admission/obs:
Admit not indicated, patient stable for discharge, reviewed case with my ER attending
ED Attending Note
-
Portions of this chart may have been created with voice recognition software.� Occasional wrong word or��sound alike� substitutions may have occurred due to the inherent limitations of voice recognition software.
Discharge Plan
Departure
Patient Disposition: Home (Routine Discharge)
Date of Disposition: 03/20/24
Time of Disposition: 22:26
Patient with high blood pressure during this ER visit?: Yes
Condition: Good
Discharge Problem:
Fall, Head trauma
Instructions: Head Injury in Adults (DC), Headache, Adult ED
Prescriptions:
No Action
acetaminophen 325 MG tablet
650 mg PO Q6HPRN PRN (Reason: fever > 100.4 and/or mild pain)
aspirin 81 MG tablet,chewable
81 mg PO DAILY
buspirone 5 MG tablet
15 mg PO BID
atorvastatin 80 MG tablet
80 mg PO QPM
venlafaxine 25 MG tablet
75 mg PO DAILY
isosorbide mononitrate 30 MG tablet extended release 24 hr
30 mg PO DAILY
melatonin 3 MG tablet
3 mg PO HS
clopidogrel 75 MG tablet
75 mg PO DAILY
magnesium hydroxide 30 ML suspension
30 ml PO DAILYPRN PRN (Reason: IF NO BM IN 3 DAYS)
tamsulosin 0.4 MG capsule
0.4 mg PO QPM
gemfibrozil 600 MG tablet
600 mg PO BID
bisacodyl [OneLAX Bisacodyl] 10 MG suppository
10 mg CO DAILYPRN PRN (Reason: IF MOM INEFFECTIVE)
trazodone 150 MG tablet
150 mg PO HS
sodium phosphates [Enema] 135 ML enema
118 ml CO DAILYPRN PRN (Reason: IF DULCOLAX INEFFECTIVE)
metoprolol succinate 25 MG tablet extended release 24 hr
25 mg PO DAILY
polyvinyl alcohol-povidon(PF) [Refresh Classic (PF)] 10 DROPS dropperette
2 drp BOTH EYES Q8HPRN PRN (Reason: DRY EYES)
bupropion HCl 300 MG tablet extended release 24 hr
300 mg PO DAILY
hydrochlorothiazide 25 MG tablet
25 mg PO DAILY
albuterol sulfate 1 PUFF HFA aerosol inhaler
2 puff inhalation R Q6HPRN PRN (Reason: sob/wheezing)
polyethylene glycol 3350 17 GRAMS powder in packet
17 grams PO DAILYPRN PRN (Reason: constipation)
tizanidine 4 MG tablet
4 mg PO Q6H
ondansetron HCl 4 MG tablet
4 mg PO Q6HPRN PRN (Reason: nausea/vomiting)
sennosides-docusate sodium 1 TABLET tablet
1 tab PO BID
calcium carbonate [Antacid (calcium carbonate)] 1 TABLET tablet,chewable
2 tab PO Q6HPRN PRN (Reason: indigestion)
nystatin [Nyamyc] 60 GM powder
1 applic topical BID
Saccharomyces boulardii 250 MG capsule
250 mg PO BID
methylprednisolone [Medrol (Ambrose)] 4 mg tablets,dose pack
See Rx Instructions .ROUTE .COMPLEX Qty: 21 0RF
Rx Instructions:
for 6 days
Referrals:
Devorah Acevedo CRNP [Family Provider] -
Activity Restrictions/Additional Instructions:
CT scan cervical spine showed no acute fracture, CT scan of the head did not show any evidence of bleeding or contusion of the brain.
PLEASE RETURN TO THE EMERGENCY DEPARTMENT SHOULD YOU DEVELOP PERSISTENT HEADACHE, DIFFICULTY SPEAKING, DIFFICULTY SWALLOWING, CHEST PAIN, SHORTNESS OF BREATH, NUMBNESS OR TINGLING IN THE UPPER EXTREMITIES, FAINTING SPELLS, OR ANY OTHER SIGNS OR
SYMPTOMS CONCERNING TO YOU.
Please follow-up primary care in 1 week to ensure the resolution of your symptoms. You can take Tylenol as needed for your headache.
Interventions
Interventions:
*Risk Screen - Suicide Last Done: 03/20/24 19:57
*General Assessment Last Done: 03/20/24 19:57
*Neglect/Abuse Screening Last Done: 03/20/24 19:57
*ED COVID-19 Vaccine History Last Done: 03/20/24 19:57
Discharge Date and Time
Print Language: EMIRATI
[2024-03-20] MEDS: TYLENOL 1000 MG PO (22:32)
[2024-03-20 23:29] VITALS: BMI 25.9
[2024-03-21 03:38] VITALS: BP 112/56
[2024-03-21 05:43] VITALS: BP 114/50
== END 2024-03-21 06:11 | disposition home or self-care (01) ==
LOC: EMR 19:53
PROVIDERS: EMERGENCY PHYSICIAN Emergency Medicine; FAMILY PHYSICIAN Nurse Practitioner
DX: S09.90XA Unspecified injury of head, initial encounter (principal); M54.2 Cervicalgia; W05.0XXA Fall from non-moving wheelchair, initial encounter; G20.A1 Parkinson's disease without dyskinesia, without mention of fluctuations; E78.00 Pure hypercholesterolemia, unspecified; I10 Essential (primary) hypertension; I25.10 Atherosclerotic heart disease of native coronary artery without angina pectoris; I25.2 Old myocardial infarction; I69.354 Hemiplegia and hemiparesis following cerebral infarction affecting left non-dominant side; J44.89 Other specified chronic obstructive pulmonary disease; Z87.891 Personal history of nicotine dependence; Z95.5 Presence of coronary angioplasty implant and graft; Z99.3 Dependence on wheelchair
CPT/HCPCS: 99284; 70450; 72125

== ENCOUNTER 2024-04-13 00:04 | Emergency (ER) | payer OTHER, SELFPAY ==
[2024-04-13 00:14] VITALS: BMI 25.6
[2024-04-13 00:19] VITALS: BP 139/65
[2024-04-13 02:11] VITALS: BP 142/102
--- NOTE | 2024-04-13 02:28 | ED.GENMED ---
History of Present Illness
General
Chief Complaint: Fall
Source: patient
Exam Limitations: none
Time Seen by Provider: 04/13/24 00:51
Nursing documentation reviewed up to this point in time: agreed with
History of Present Illness
History of Present Illness:
Patient is a 58-year-old male presents to the emergency department after falling out of his wheelchair and striking the left side of his head. Patient has a history of a fusion of his neck and 2003. Patient has chronic neck pain and continues to
complain of pain. Patient denies loss of consciousness. Patient denies chest pain, abdominal pain, lower extremity pain or upper extremity pain.
Past History
Past History
ED Past Medical History: Asthma, CAD, COPD, CVA (Left sided paralysis), HTN, Hypercholesterolemia, [place] (X 4), Psychiatric (Anxiety, Bipolar, Depression, Schizo) and Other (Previous stroke with left hemiparesis, Parkinson's, COPD, Neuropathy,
Fracture ortibs, Chronic back pain, )
ED Past Surgical History: Cardiac (Stents X 4), Orthopedic (Neck fusion, Right hand surgery, ) and Tonsilectomy
Social History
Tobacco: Former smoker
Alcohol: None
Drug: None
Personal:
Living: jail ([facility])
Employment: Not employed
Family History
Family History: Other (Stroke)
Review of Systems
Review of Systems
All Other Systems: Not applicable
Phy Exam
Physical Exam
Physical Exam:
Physical Exam
General: No apparent distress, alert and appropriate, well nourished, well hydrated
HENT: Normocephalic with tenderness along the left aspect and a 1.5 cm laceration above the left eyebrow, supple with no tracheal deviation or contusion
Eyes: Clear sclera, conjuctiva without injection, extraocular muscles intact
Heart: Regular rhythm and rate. No S3, S4. No murmur. No NVD
Lungs: No respiratory distress, no stridor, lung sounds clear and equal bilaterally, chest wall symmetrical and nontender
Abdomen: Soft, nontender, BS good
Neuro: Alert and usual mental status, CN II - XII intact, no motor focality
Skin: Laceration as stated above
Psychiatric: well kept. interactive and cooperative
Extremities: No edema, cyanosis, tenderness
Musculoskeletal: Diffuse cervical spine tenderness. No thoracic or lumbar spine tenderness
Course
Orders/Labs/Results
Orders:
Orders
04/13/24 02:27
CT Cervical Spine W/o Iv Contr Urgent
Comment:
Reason For Exam: Fall with tenderness
04/13/24 02:28
CT Head W/o Iv Contrast Urgent
Comment:
Reason For Exam: Fall out of wheelchair with diffuse tenderness abo
04/13/24 02:32
Tetanus/Diphth/Acelpertussis [Adacel] 0.5 ml IM .ONCE ONE
Vital Signs
Initial and Last Documented VS:
Initial Vital Signs
Temp Pulse Resp BP Pulse Ox
97.3 F 63 20 139/65 98
04/13/24 00:19 04/13/24 00:19 04/13/24 00:19 04/13/24 00:19 04/13/24 00:19
Last Documented Vital Signs
Temp Pulse Resp BP Pulse Ox
97.3 F 67 12 142/102 99
04/13/24 00:19 04/13/24 02:15 04/13/24 02:15 04/13/24 02:11 04/13/24 02:15
Procedures
Laceration Closure
Left Superior Eye brow:
Status of Wound: clean
Size of Wound in cm: 1.5
Description of Wound Edges: sharp
Preparation: cleaned with saline
Revision/Debridement: routine- no revision
Wound exploration: explored to base- no FB
Type of Closure: Dermabond-skin glue
Number of sutures: 0
*Radiology
Radiology exam reviewed: preliminary read by ED provider (nothing acute)
*Pulse Oximetry
Patient hypoxic: no
*EKG
Interpreted by ED Provider?: NA
*Team Manager Interpretation
Rate: Team Manager- N/A
*Critical Care Note
Total Time (30-74mins, 75-104mins- exclusive of procedures): Not Applicable
ED Attending Note
-
Portions of this chart may have been created with voice recognition software.� Occasional wrong word or��sound alike� substitutions may have occurred due to the inherent limitations of voice recognition software.
Discharge Plan
Departure
Patient Disposition: [facility]/SNF
Date of Disposition: 04/13/24
Time of Disposition: 03:14
Patient with high blood pressure during this ER visit?: Yes
Condition: Good
Covid-19: Not Applicable
Discharge Problem:
Forehead laceration, Minor closed head injury
Instructions: Laceration Repair With Glue (DC), Head Injury in Adults (DC), Preventing falls in adults, BLOOD PRESSURE
Prescriptions:
No Action
acetaminophen 325 MG tablet
650 mg PO Q6HPRN PRN (Reason: fever > 100.4 and/or mild pain)
aspirin 81 MG tablet,chewable
81 mg PO DAILY
buspirone 5 MG tablet
15 mg PO BID
atorvastatin 80 MG tablet
80 mg PO QPM
venlafaxine 25 MG tablet
75 mg PO DAILY
isosorbide mononitrate 30 MG tablet extended release 24 hr
30 mg PO DAILY
melatonin 3 MG tablet
3 mg PO HS
clopidogrel 75 MG tablet
75 mg PO DAILY
magnesium hydroxide 30 ML suspension
30 ml PO DAILYPRN PRN (Reason: IF NO BM IN 3 DAYS)
tamsulosin 0.4 MG capsule
0.4 mg PO QPM
gemfibrozil 600 MG tablet
600 mg PO BID
bisacodyl [OneLAX Bisacodyl] 10 MG suppository
10 mg AR DAILYPRN PRN (Reason: IF MOM INEFFECTIVE)
trazodone 150 MG tablet
150 mg PO HS
sodium phosphates [Enema] 135 ML enema
118 ml AR DAILYPRN PRN (Reason: IF DULCOLAX INEFFECTIVE)
metoprolol succinate 25 MG tablet extended release 24 hr
25 mg PO DAILY
polyvinyl alcohol-povidon(PF) [Refresh Classic (PF)] 10 DROPS dropperette
2 drp BOTH EYES Q8HPRN PRN (Reason: DRY EYES)
bupropion HCl 300 MG tablet extended release 24 hr
300 mg PO DAILY
hydrochlorothiazide 25 MG tablet
25 mg PO DAILY
albuterol sulfate 1 PUFF HFA aerosol inhaler
2 puff inhalation R Q6HPRN PRN (Reason: sob/wheezing)
polyethylene glycol 3350 17 GRAMS powder in packet
17 grams PO DAILYPRN PRN (Reason: constipation)
tizanidine 4 MG tablet
4 mg PO Q6H
ondansetron HCl 4 MG tablet
4 mg PO Q6HPRN PRN (Reason: nausea/vomiting)
sennosides-docusate sodium 1 TABLET tablet
1 tab PO BID
calcium carbonate [Antacid (calcium carbonate)] 1 TABLET tablet,chewable
2 tab PO Q6HPRN PRN (Reason: indigestion)
nystatin [Nyamyc] 60 GM powder
1 applic topical BID
Saccharomyces boulardii 250 MG capsule
250 mg PO BID
methylprednisolone [Medrol (Ambrose)] 4 mg tablets,dose pack
See Rx Instructions .ROUTE .COMPLEX Qty: 21 0RF
Rx Instructions:
for 6 days
Referrals:
Johnny Franco, [Family Provider] - Follow up in 5-7 days
Activity Restrictions/Additional Instructions:
Continue present medications and therapy.
Interventions
Interventions:
*Risk Screen - Suicide Last Done: 04/13/24 00:26
*General Assessment Last Done: 04/13/24 00:19
*Neglect/Abuse Screening Last Done: 04/13/24 00:19
ED- Fall Risk Assessment Last Done: 04/13/24 00:19
ED-Musculoskeletal Assessment Last Done: 04/13/24 00:19
ED- Neurological Assessment Last Done: 04/13/24 00:19
ED-Skin Assessment Last Done: 04/13/24 00:19
Discharge Date and Time
Print Language: KOREAN
[2024-04-13] MEDS: ADACEL 0.5 ML IM (02:41)
[2024-04-13 03:09] VITALS: BP 138/70
[2024-04-13 04:00] VITALS: BP 148/64
[2024-04-13 05:00] VITALS: BP 157/76
--- NOTE | 2024-04-13 05:25 | EDRN ---
Report called to second floor nursing station [facility]
--- NOTE | 2024-04-13 05:54 | EDRN ---
Pt incontinent of urine - perineal care provided and diaper placed. Pt's clothing in bag is damp, pt put in hospital gown to go home. Report given to Acute Care.
== END 2024-04-13 06:01 ==
LOC: EMR 00:04
PROVIDERS: EMERGENCY PHYSICIAN Emergency Medicine; FAMILY PHYSICIAN Internal Medicine
DX: S01.81XA Laceration without foreign body of other part of head, initial encounter (principal); W05.0XXA Fall from non-moving wheelchair, initial encounter; G89.29 Other chronic pain; M54.2 Cervicalgia; E78.00 Pure hypercholesterolemia, unspecified; G20.A1 Parkinson's disease without dyskinesia, without mention of fluctuations; I10 Essential (primary) hypertension; I25.10 Atherosclerotic heart disease of native coronary artery without angina pectoris; I25.2 Old myocardial infarction; I69.354 Hemiplegia and hemiparesis following cerebral infarction affecting left non-dominant side; Z87.891 Personal history of nicotine dependence; Z95.5 Presence of coronary angioplasty implant and graft; Z23 Encounter for immunization
CPT/HCPCS: 12011; 99284; 90471; 70450; 72125; 90715

== ENCOUNTER 2024-07-28 18:35 | Observation (INO) | payer OTHER, SELFPAY ==
[2024-07-28] VITALS (24 sets, daily range): BP systolic 116–152; BP diastolic 57–88; BMI 24.8; BMI 23.6
--- NOTE | 2024-07-28 15:17 | ED.CVA ---
History of Present Illness
General
Chief Complaint: CVA/TIA Symptoms
Source: patient and ambulance crew
Exam Limitations: none
Time Seen by Provider: 07/28/24 15:15
Onset of Stroke Symptoms
Onset of symptoms known: No
Time pt last seen normal is known: Yes
Date last time pt seen normal: 07/28/24
Time last time pt seen normal: 08:00
History of Present Illness
History of Present Illness:
See MDM
Past History
Past History
ED Past Medical History: Asthma, CAD, COPD, CVA (Left sided paralysis), HTN, Hypercholesterolemia, CT (X 4), Psychiatric (Anxiety, Bipolar, Depression, Schizo) and Other (Previous stroke with left hemiparesis, Parkinson's, COPD, Neuropathy,
Fracture ortibs, Chronic back pain, )
ED Past Surgical History: Cardiac (Stents X 4), Orthopedic (Neck fusion, Right hand surgery, ) and Tonsilectomy
Social History
Tobacco: Former smoker
Alcohol: None
Drug: None
Personal:
Living: alf [facility])
Employment: Not employed
Family History
Family History: Other (Stroke)
Phy Exam
Physical Exam
Physical Exam:
See MDM
Scores
NIH Stroke Score
Level of Consciousness: 0 - Alert
LOC Questions: 0-Answers both correctly
LOC Commands: 0-Performs both correctly
Best Horizontal Gaze: 0-Normal
Visual Gibson: 0=Normal, no visual loss
Facial Palsy: 0=Normal, symmetrical
Motor - Right Arm: 0=No drift 10 seconds
Motor - Left Arm: 4=No movement
Motor - Right Le-Drift < 5 seconds
Motor - Left Le-No movement
Limb Ataxia: 0-Absent
Sensation: 0-Normal
Best Language: 0-No aphasia
Dysarthria: 0-Normal
Extinction and Inattention: 0-No abnormality
Total Score:: 9
Course
Orders/Labs/Results
Orders:
Orders
07/28/24 15:15
CT HEAD STROKE ALERT W/o Cont Urgent
Reason For Exam: slurred speech
CT HEAD/NECK ANG STROKE ALERT Urgent
Comment:
Reason For Exam: slurred speech
NEUROLOGY CONSULT Urgent
Consulting Provider: Red Santos
Was physician already notified: Yes
Cardiac Monitoring- Treatment ONCE
07/28/24 15:16
Electrocardiogram (*1) Stat
Reason for Study: Other
Other Reason for Exam: neuro symptoms
EKG- Treatment ONCE
07/28/24 15:33
Basic Metabolic Panel Urgent
Complete Blood Count/With Diff Urgent
PTT Urgent
Prothrombin Time Urgent
Troponin I Urgent
07/28/24 16:24
Urinalysis Reflex To Culture Urgent
Urine Drug Abuse Screen Urgent
Abnormal Lab Results
07/28/24
15:33
RBC 3.88 L 10^6/uL
(4.70-6.10)
Hgb 12.4 L g/dL
(13.0-18.0)
Hct 35.3 L %
(39.0-52.0)
MCH 32.0 H pg
(27.0-31.0)
RDW 14.8 H %
(11.5-14.5)
PT 16.5 H Sec
(11.4-14.6)
Chloride 111 H mmol/L
(98-107)
Carbon Dioxide 20 L mmol/L
(22-30)
07/28/24 15:33
07/28/24 15:33
Vital Signs
Initial and Last Documented VS:
Initial Vital Signs
Temp Pulse BP Pulse Ox
98.8 F 75 129/69 97
07/28/24 15:15 07/28/24 15:15 07/28/24 15:15 07/28/24 15:15
Last Documented Vital Signs
Temp Pulse Resp BP Pulse Ox
98.8 F 79 19 129/69 97
07/28/24 15:15 07/28/24 15:45 07/28/24 15:45 07/28/24 15:19 07/28/24 15:51
MDM/Problems Addressed
Differential Diagnosis Includes:
HPI and MDM Narrative:
59-year-old male presenting for evaluation of a prearrival stroke alert. Per EMS, patient resides at a nursing facility. He apparently was last known normal at 8 AM. Nursing staff noted that he had slurred speech and was slumped over. It is not
certain when they noticed the symptoms. He has a prior history of stroke with residual left hemiparesis. On arrival, EMS stating that his slurred speech is resolved. Patient does acknowledge that he is feeling better. Regardless, prearrival
stroke alert was called and patient met by myself and nursing staff and neurology on arrival
Physical exam
General: Well appearing and non-toxic
HEENT: protecting airway
Neck: appears supple
CV: No evidence of cyanosis. Regular rate and rhythm
Resp: No accessory muscle use
Abd: Non-distended
Extremities: No deformities
Neuro: Chronic left leg and arm paralysis. Weakness noted to right leg. No dysarthria
Psych: Normal affect
Skin: Intact
Problems Addressed including Acute and Chronic Conditions affecting care:
1. Slurred speech
Acuity: acute
Prognosis: stable
Details: Symptoms improving. Neurology at bedside. Will obtain CTA
Updates
Given duration of symptoms, patient is not a TNK candidate.
CTA shows chronic appearing findings. Case further discussed with neurology. From a neurology standpoint, no further workup needed given that he is already medically optimized. I did consider sending him home but patient still difficult to
arouse. Will obtain UA and admit
Differential Diagnosis (but not limited to): TIA, stroke, intracranial hemorrhage
Testing considered: Urinalysis
Drug therapy (if applicable): OTC meds, please see d/c instruction regarding Rx drugs
Amount and/or Complexity of Data Reviewed
Clinical info obtained from: Patient
External data reviewed: N/A
Labs I independently reviewed (but not limited to): White blood cell count normal
Radiology: The CT scan was personally and independently reviewed. In addition, official CT report reviewed.
Pulse Ox: not hypoxic
EKG independently reviewed: Sinus rhythm, left axis, left bundle branch block, no STEMI
Internal Sales Engineer: Sinus rhythm
Critical Care: N/A
Risk of Complication:
Social Determinants of health: Good social support
Discussed with other providers: Neurologist, hospitalist
Escalation of Care includes Admit/Obs: Given the altered mental status change, will admit
Occasional wrong word or 'sound a like' substitutions may have occurred due to the inherent limitations of voice recognition software. Read the chart carefully and recognize, using context, where substitutions have occurred.
*Critical Care Note
Total Time (30-74mins, 75-104mins- exclusive of procedures): Not Applicable
ED Attending Note
-
Portions of this chart may have been created with voice recognition software.� Occasional wrong word or��sound alike� substitutions may have occurred due to the inherent limitations of voice recognition software.
Discharge Plan
Departure
Patient Disposition: Admit
Date of Disposition: 07/28/24
Time of Disposition: 16:27
Admit to: Telemetry
Presentation/result/management discussed w/ accepting MD/DO: Hospitalist
Discharge Problem:
Brain TIA, Altered mental status
Prescriptions:
No Action
acetaminophen 325 MG tablet
650 mg PO Q6HPRN PRN (Reason: fever > 100.4 and/or mild pain)
aspirin 81 MG tablet,chewable
81 mg PO DAILY
atorvastatin 80 MG tablet
80 mg PO QPM
clopidogrel 75 MG tablet
75 mg PO DAILY
magnesium hydroxide 30 ML suspension
30 ml PO DAILYPRN PRN (Reason: IF NO BM IN 3 DAYS)
tamsulosin 0.4 MG capsule
0.4 mg PO HS
gemfibrozil 600 MG tablet
600 mg PO BID
bisacodyl [OneLAX Bisacodyl] 10 MG suppository
10 mg AR DAILYPRN PRN (Reason: IF MOM INEFFECTIVE)
Enema 135 ML enema
118 ml AR DAILYPRN PRN (Reason: IF DULCOLAX INEFFECTIVE)
polyethylene glycol 3350 17 GRAMS powder in packet
17 grams PO DAILY
sennosides-docusate sodium 1 TABLET tablet
1 tab PO BID
calcium carbonate [Antacid (calcium carbonate)] 1 TABLET tablet,chewable
2 tab PO Q6HPRN PRN (Reason: indigestion)
venlafaxine [Effexor XR] 75 mg Capsule,Extended Release 24hr
75 mg PO DAILY
lidocaine 4 % Adhesive Patch,Medicated
1 patch TOPICAL DAILY
cetirizine [Zyrtec] 10 mg Tablet
10 mg PO DAILY
acetaminophen [Tylenol Extra Strength] 500 mg Tablet
1,000 mg PO DAILY
clindamycin phosphate 1 % Gel
1 applic TOPICAL BID
baclofen 10 mg Tablet
10 mg PO TID
gabapentin 300 mg Capsule
300 mg PO TID
celecoxib 100 mg Capsule
100 mg PO BID
fluticasone propionate [Flonase] 50 mcg/actuation Allison,Suspension
1 spray INTRANASAL DAILY
bupropion HCl [Wellbutrin XL] 150 mg Tablet Extended Release 24 Hr
150 mg PO HS
topiramate [Topamax] 50 mg Tablet
50 mg PO BID
[place] Saline Gel Allison,Non-Aerosol
1 spray INTRANASAL [id number] PRN (Reason: dryness)
cholecalciferol (vitamin D3) [Vitamin D3] 25 mcg (1,000 unit) Tablet
50 mcg PO DAILY
diclofenac sodium [Voltaren] 1 % Gel
2 g TOPICAL HS
Nurtec ODT 75 mg Tablet,Disintegrating
75 mg PO DAILYPRN PRN (Reason: migraine)
Interventions
Interventions:
*General Assessment Last Done: 07/28/24 15:51
*Neglect/Abuse Screening Last Done: 07/28/24 15:51
*ED- Fall Risk Assessment Last Done: 07/28/24 15:51
*ED COVID-19 Vaccine History Last Done: 07/28/24 15:51
ED- Pulmonary Assessment Last Done: 07/28/24 15:51
ED- Neurological Assessment Last Done: 07/28/24 15:51
ED- Cardiac Assessment Last Done: 07/28/24 15:51
Discharge Date and Time
Print Language: ESTONIAN
[2024-07-28 15:45] LABS: % Basophils 0.6 % (0-2); % Eosinophils 3.2 % (0-6); % Immature Granulocytes 0.3 % (0-0.5); % Lymphocytes 23.7 % (20.5-51.1); % Monocytes 8.3 % (1.7-9.3); % Neutrophils 63.9 % (42.2-75.2); Absolute Eosinophils 0.2 10^3/uL (0-0.7); Absolute Lymphocytes 1.5 10^3/uL (1.2-3.4); Absolute Monocytes 0.5 10^3/uL (0.1-0.6); Absolute Neutrophils 3.9 10^3/uL (1.4-6.5); Hematocrit 35.3 % (39.0-52.0); Hemoglobin 12.4 g/dL (13.0-18.0); Mean Corp Hgb Conc. 35.1 g/dL (33.0-37.0); Mean Platelet Volume 9.7 fL (7.4-10.4); Nucleated Red Blood Cells % 0 % (-); Platelet Count 244 10^3/uL (130-400); Red Blood Cell Count 3.88 10^6/uL (4.70-6.10); Red Cell Dist. Width 14.8 % (11.5-14.5); White Blood Cell Count 6.2 10^3/uL (4.8-10.8)
[2024-07-28 15:51] LABS: INR 1.31; PT 16.5 Sec (11.4-14.6)
[2024-07-28 15:52] LABS: APTT 31.5 Sec (23.4-35.0)
[2024-07-28 16:04] LABS: Blood Urea Nitrogen 17 mg/dl (9-20); Calcium 9.5 mg/dl (8.4-10.2); Carbon Dioxide 20 mmol/L (22-30); Chloride 111 mmol/L (98-107); Estimated Creatinine Clearance 103 ml/min; Glucose 88 mg/dl (70-99); Sodium 141 mmol/L (135-145); eGFR > 60.00
[2024-07-28 16:05] LABS: Troponin I 0.021 ng/ml
--- NOTE | 2024-07-28 18:07 | HPS.HSE ---
Addendum entered and electronically signed by Emy Gonzalez MD 07/28/24 19:23:
I personally performed a history and physical exam of the patient and discussed management with the resident. I reviewed the resident's note and agree with the documented findings and plan of care HPI/CC.
GENERAL: chronically ill male in no apparent distress--more responsive to me than to Dr. Telles
HEENT: NC/AT dry mucus membranes
HEART: regular rate and rhythm, +S1, +S2, + gallop
LUNGS : clear to auscultation bilaterally
ABDOM: soft, nontender, nondistended, + bowel sounds
EXT: no cyanosis, clubbing, or edema
NEUROLOGIC: left sided hemiparesis
Altered mental status with unknown etiology--possible new stroke (100% right ICA occlusion, 80% left ICA occlusion)--post ictal from seizure? (none witnessed)--medication effect (took someone else's?)--CO2 retention?--agree with urine tox screen,
ABG, CXR--check MRI brain
Slurring of speech/prior history of stroke with residual left hemiparesis--came as pre hospital stroke alert--Slurring of speech resolved on arrival to ED--apprec neuro--cont asa/plavix/statin--PT/OT/speech
Dehydration--Dry mucous membrane on exam--D5 normal saline
Anxiety/depression--Continue home oral medications- venlexafine, wellbutrin
Schizoaffective disorder--Continue home meds
BPH--Continue tamsulosin
Chronic migraine--Continue Nurtec plus Tylenol, Topamax
Chronic back pain--Hold baclofen for now--cont tylenol
Chronic constipation--Continue home bowel regime
code status--Full code
DVT proph--Lovenox
Original Note:
Family Physician
-
Family Physician: Johnny Franco, DO
Chief Complaint
-
Slurred speech
History of Present Illness
59-year-old male with history of stroke with residual left hemiparesis presented from [facility] to ED with slurring of speech. History is obtained from ED note, as patient is unable to provide history.
He was apparently normal at 8 AM this morning. Nursing staff noted that he had a slurred speech and was slumped over. On arrival to the ED his slurred speech resolved. Prearrival stroke alert was called and neurology was consulted. Workup done
included head CT which was unremarkable. 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
On patient interview, he is oriented to place, his name, his date of . He is arousable to physical stimuli and when called his name.
Medical History
Past Medical History
Past Medical History: Reports Other (Asthma COPD History of CVA (Left sided paralysis) HTN Hypercholesterolemia History of CAD with 4 stent placement , Anxiety/depression Schizoaffective disorder Other chronic back pain Neuropathy)
Past Surgical History: Reports Cardiac (stent x 4 ), Orthopedic (Neck fusion, Right hand surgery) and Other (Tonsillectomy)
Social History
Tobacco: Former Smoker
Personal:
Living: Alf
Employment: Not Employed
Family History
Family History: Not pertinent
Allergies / Home Medications
Allergies reflects when Allergies were last updated in [employer].
Home Medications with original date entered in [employer]
Allergy/Medication List:
Allergies
Allergy/AdvReac Type Severity Reaction Status Date / Time
ciprofloxacin [From Cipro] Allergy Unknown Verified 07/28/24 15:22
lidocaine [From Xylocaine] Allergy Unknown Verified 07/28/24 15:22
Penicillins Allergy Unknown Verified 07/28/24 15:22
Home Medications
acetaminophen 325 mg tablet 650 mg PO Q6HPRN PRN fever > 100.4 and/or mild pain 12/27/19
aspirin 81 mg chewable tablet 81 mg PO DAILY Blood clot prevention/tx 12/27/19
atorvastatin 80 mg tablet 80 mg PO QPM 02/11/20
bisacodyl 10 mg rectal suppository (OneLAX Bisacodyl) 10 mg MI DAILYPRN PRN IF MOM INEFFECTIVE 02/11/20
clopidogrel 75 mg tablet 75 mg PO DAILY 02/11/20
gemfibrozil 600 mg tablet 600 mg PO BID 02/11/20
magnesium hydroxide 400 mg/5 mL oral suspension 30 ml PO DAILYPRN PRN IF NO BM IN 3 DAYS 02/11/20
sodium phosphates 19 gram-7 gram/118 mL enema (Enema) 118 ml MI DAILYPRN PRN IF DULCOLAX INEFFECTIVE 02/11/20
tamsulosin 0.4 mg capsule 0.4 mg PO HS 02/11/20
calcium carbonate (Antacid (calcium carbonate)) 2 tab PO Q6HPRN PRN indigestion 09/14/20
polyethylene glycol 3350 17 gram oral powder packet 17 grams PO DAILY 09/14/20
sennosides 8.6 mg-docusate sodium 50 mg tablet 1 tab PO BID 09/14/20
acetaminophen 500 mg tablet (Tylenol Extra Strength) 1,000 mg PO DAILY 07/28/24
baclofen 10 mg tablet 10 mg PO TID 07/28/24
bupropion HCl 150 mg 24 hr tablet, extended release (Wellbutrin XL) 150 mg PO HS 07/28/24
celecoxib 100 mg capsule 100 mg PO BID 07/28/24
cetirizine 10 mg tablet (Zyrtec) 10 mg PO DAILY 07/28/24
cholecalciferol (vitamin D3) 25 mcg (1,000 unit) tablet (Vitamin D3) 50 mcg PO DAILY 07/28/24
clindamycin phosphate 1 % topical gel 1 applic topical BID 07/28/24
diclofenac sodium 1 % topical gel 2 g topical HS left hand and left wrist 07/28/24
fluticasone propionate 50 mcg/actuation nasal spray,suspension 1 spray intranasal DAILY 07/28/24
gabapentin 300 mg capsule 300 mg PO TID 07/28/24
lidocaine 4 % topical patch 1 patch topical DAILY lower back 07/28/24
rimegepant 75 mg disintegrating tablet (Nurtec ODT) 75 mg PO DAILYPRN PRN migraine 07/28/24
sodium chloride-aloe vera nasal spray ([place] Saline Gel nasal spray) 1 spray intranasal [id number] PRN dryness 07/28/24
topiramate 50 mg tablet (Topamax) 50 mg PO BID 07/28/24
venlafaxine 75 mg capsule,extended release 24 hr (Effexor XR) 75 mg PO DAILY 07/28/24
Review of Systems
-
Unable to obtain full review of systems at this time due to: Other (not able to answer questions )
History Source: Patient (not able to provide much history )
A 12 point ROS was completed and negative except as noted: Yes
Physical Exam
Vital Signs
Vital Signs
Temp Pulse Resp BP Pulse Ox
98.8 F 81 10 141/75 97
07/28/24 15:15 07/28/24 18:00 07/28/24 18:00 07/28/24 18:00 07/28/24 15:51
Physical Exam
General: Slurred Speech and Other (Arousable with physical stimuli)
HEENT: NormoCephalic and Other (Dry mucous membrane)
Respiratory: Clear and Non Labored Respirations; No Wheezes, Rales, Rhonchi or Crackles
Cardiac: S1/S2 and Gallop (Left upper sternal )
GI: Soft, Non Tender and Non Distended
Neuro: Awake, Alert, Oriented and Other (Presence of motor deficit on the left side, 3 x 5 motor strength on the right side, sensation intact)
Psych: Calm
Laboratory Results
-
07/28/24 15:33
07/28/24 15:33
Laboratory Results
PT 16.5 Sec (11.4-14.6) H 07/28/24 15:33
INR 1.31 04/08/25 15:33
APTT 31.5 Sec (23.4-35.0) 07/28/24 15:33
Total Bilirubin Cancelled 07/28/24 15:33
AST Cancelled 07/28/24 15:33
ALT Cancelled 07/28/24 15:33
Alkaline Phosphatase Cancelled 07/28/24 15:33
Troponin I 0.021 ng/ml 07/28/24 15:33
Data Reviewed
-
CT Scan: Report Reviewed by me and Discussed with Physician
Lab Data: Labs Reviewed by me and Discussed with Physician
Impression/Plan
-
IMPRESSION:
Slurring of speech /prior history of stroke with residual left hemiparesis
Altered mental status with unknown etiology
Dehydration
Anxiety/depression
Schizoaffective disorder
BPH
Chronic migraine
Chronic back pain
Chronic constipation
PLAN:
Slurring of speech/prior history of stroke with residual left hemiparesis
Admit patient for observation
Slurring of speech resolved on arrival to ED
Neurology following
Advised to continue oral aspirin and Plavix
Continue high intensity atorvastatin
Since patient became a little more responsive to questions, will continue oral medications for now
Will consider checking MRI of the brain for any new stroke
Head CT unremarkable. CTA shows complete occlusion of right ICA, chronic and 80% stenosis of left ICA
If MRI is negative then would consider consulting vascular
Speech eval/treat
Altered mental status with unknown etiology?
Differential diagnosis: Multiple medication use, underlying infection ?
Admit for observation
Arousable with physical stimuli
Check urine drug screen, UA
Check chest x-ray
Check ABG for acid-base disturbance
Dehydration
Dry mucous membrane on exam
D5 normal saline
Anxiety/depression
Continue home oral medications- venlexafine, wellbutrin
Schizoaffective disorder
Continue home meds
BPH
Continue tamsulosin and Topamax
Chronic migraine
Continue Nurtec plus Tylenol
Chronic back pain
Hold baclofen for now
Chronic constipation
Continue home bowel regime
Full code
Lovenox
[id number]
[2024-07-28 18:37] LABS: Urine Albumin 1+ (Neg - Trace); Urine Bilirubin 1+ (Negative); Urine Character Slightly Cloudy (Clear); Urine Color Yellow; Urine Glucose Negative (Negative); Urine Ketone Negative (Negative); Urine Leukocyte Negative (Negative); Urine Nitrite Positive (Negative); Urine Occult Blood Negative (Negative); Urine Specific Gravity 1.015 (<1.030); Urine Urobilinogen 2+ (Neg - 1+); Urine pH 6.5 (5.0-9.0)
[2024-07-28] MEDS: D5/0.9% SODIUM CHLORIDE 1000 IV (18:44)
[2024-07-28 18:46] LABS: B.E. -3.3 mmol/L; HCO3 22.1 mmol/L (21-28); O2 Saturation % 98.8 % (94-98); PCO2 40 mmHg (35-48); PO2 99 mmHg (83-108); pH 7.35 (7.35-7.45)
[2024-07-28 18:47] LABS: Urine Red Blood Cell 0-2 /HPF (0-2); Urine Squamous Cell 0-2 /LPF (Few)
[2024-07-28 18:48] LABS: Urine Bacteria Many (Negative)
[2024-07-28 18:53] LABS: Amphetamines Negative (Negative); Barbiturates Negative (Negative); Benzodiazepines Negative (Negative); Buprenorphine Negative (Negative); Cocaine Negative (Negative); Marijuana Negative (Negative); Methadone Negative (Negative); Methamphetamines Negative (Negative); Opiates Negative (Negative); Phencyclidine Negative (Negative); Tricyclic Antidepressants Positive (Negative)
[2024-07-28] MEDS: LOPID PO (22:48)
[2024-07-28] MEDS: NEURONTIN PO (22:48)
[2024-07-28] MEDS: TOPAMAX PO (22:48)
[2024-07-28] MEDS: CELEBREX PO (22:48)
[2024-07-28] MEDS: SENOKOT-S PO (22:48)
[2024-07-29] MEDS: D5/0.9% SODIUM CHLORIDE 1000 IV (05:28)
[2024-07-29 07:25] VITALS: BP 149/79
[2024-07-29 08:04] LABS: % Basophils 0.7 % (0-2); % Eosinophils 3.6 % (0-6); % Immature Granulocytes 0.5 % (0-0.5); % Monocytes 7.3 % (1.7-9.3); % Neutrophils 64.9 % (42.2-75.2); Absolute Eosinophils 0.2 10^3/uL (0-0.7); Absolute Lymphocytes 1.4 10^3/uL (1.2-3.4); Absolute Monocytes 0.4 10^3/uL (0.1-0.6); Absolute Neutrophils 3.8 10^3/uL (1.4-6.5); Hematocrit 34.2 % (39.0-52.0); Hemoglobin 11.9 g/dL (13.0-18.0); Mean Corp Hgb Conc. 34.8 g/dL (33.0-37.0); Mean Corpuscular Volume 91.9 fL (80.0-94.0); Mean Platelet Volume 9.9 fL (7.4-10.4); Nucleated Red Blood Cells % 0 % (-); Platelet Count 224 10^3/uL (130-400); Red Blood Cell Count 3.72 10^6/uL (4.70-6.10); Red Cell Dist. Width 14.6 % (11.5-14.5); White Blood Cell Count 5.9 10^3/uL (4.8-10.8)
--- NOTE | 2024-07-29 08:44 | PTOTSP ---
Speech Pathology
Clinical Swallow Evaluation
59M with admission for CVA/TIA symptoms presents with s/s of a mildly impaired oropharyngeal swallow characterized by prolonged mastication of regular solids and intermittent s/s of aspiration with thin liquids. Aspiration risk is increased 2/2
admission for AMS and CVA/TIA workup, as well as multiple comorbidities (i.e. COPD, hx CVA (lt sided paralysis)).
Recommend:
1. Soft and Bite Sized Solids (IDDSI 6), Thin liquid (IDDSI 0)
2. Meds as best tolerated
3. Swallow strategies: small bites, single sips, slow rate, PARTIAL assistance
4. GLOBAL COMPENSATION MANAGER service to follow up re: to assess tolerance of current diet level; determine need for VSE; and provide dysphagia tx at the acute care level PRN
[2024-07-29] MEDS: CELEBREX 100 MG PO (09:04)
[2024-07-29] MEDS: LOPID 600 MG PO (09:04)
[2024-07-29] MEDS: TOPAMAX 50 MG PO (09:04)
[2024-07-29 09:05] LABS: Blood Urea Nitrogen 11 mg/dl (9-20); Calcium 8.4 mg/dl (8.4-10.2); Carbon Dioxide 21 mmol/L (22-30); Chloride 116 mmol/L (98-107); Estimated Creatinine Clearance > 125 ml/min; Glucose 330 mg/dl (70-99); Potassium 3.4 mmol/L (3.5-5.1); Sodium 144 mmol/L (135-145); eGFR > 60.00
[2024-07-29] MEDS: SENOKOT-S 1 TABLET PO (09:05)
[2024-07-29] MEDS: NEURONTIN 300 MG PO (09:05)
[2024-07-29] MEDS: ZYRTEC 10 MG PO (09:05)
[2024-07-29] MEDS: MIRALAX 17 GRAMS PO (09:05)
[2024-07-29] MEDS: PLAVIX 75 MG PO (09:05)
[2024-07-29] MEDS: LOW STRENGTH ASPIRIN 81 MG PO (09:05)
[2024-07-29] MEDS: VITAMIN D3 (cholecalciferol) 50 MCG PO (09:05)
[2024-07-29] MEDS: TYLENOL 1000 MG PO (09:32)
[2024-07-29] MEDS: EFFEXOR XR 75 MG PO (09:32)
--- NOTE | 2024-07-29 14:07 | W.PN.HOSP.TC ---
Addendum entered and electronically signed by Emy Gonzalez MD 07/29/24 14:46:
I saw and evaluated the patient independently. I reviewed the resident�s note and agree with findings and plan as documented by Dr. Telles.
GENERAL: chronically ill male in no apparent distress--more responsive to me than to Dr. Telles
HEENT: NC/AT dry mucus membranes
HEART: regular rate and rhythm, +S1, +S2, + gallop
LUNGS : clear to auscultation bilaterally
ABDOM: soft, nontender, nondistended, + bowel sounds
EXT: no cyanosis, clubbing, or edema
NEUROLOGIC: left sided hemiparesis
Altered mental status with unknown etiology--possible new stroke (100% right ICA occlusion, 80% left ICA occlusion)---medication effect (took someone else's?) most likely as urine tox screen positive for TCAs (pt not on) ABG OK, CXR neg--no need for
MRI brain as pt back to baseline--outpt vascular eval
Slurring of speech/prior history of stroke with residual left hemiparesis--came as pre hospital stroke alert--Slurring of speech resolved on arrival to ED--apprec neuro--cont asa/plavix/statin--PT/OT/speech
Dehydration--Dry mucous membrane on exam--D5 normal saline
hypokalemia--replete
Anxiety/depression--Continue home oral medications- venlexafine, wellbutrin
Schizoaffective disorder--Continue home meds
BPH--Continue tamsulosin
Chronic migraine--Continue Nurtec plus Tylenol, Topamax
Chronic back pain--Hold baclofen for now--cont tylenol
Chronic constipation--Continue home bowel regime
code status--Full code
DVT proph--Lovenox
OK for d/c
Original Note:
Today's Communication/Plan
-
Very responsive, alert, answering questions
Medically stable to go back to SNF today
Consider seeing vascular outpatient
Assessment / Plan
Assessment / Plan
Slurring of speech/prior history of stroke with residual left hemiparesis
Admit patient for observation
Slurring of speech resolved on arrival to ED
Neurology following
Advised to continue oral aspirin and Plavix
Continue high intensity atorvastatin
Will consider checking MRI of the brain for any new stroke
Head CT unremarkable. CTA shows complete occlusion of right ICA, chronic and 80% stenosis of left ICA
Speech advised IDDSI 6
Very responsive, alert, answering questions
Medically stable to go back to SNF
Consider seeing vascular outpatient
Altered mental status with unknown etiology?
Differential diagnosis: Multiple medication use, underlying infection ?
Admit for observation
Arousable with physical stimuli
Chest x-ray unremarkable
ABG unremarkable
Dehydration
Dry mucous membrane on exam
D5 normal saline
Anxiety/depression
Continue home oral medications- venlexafine, wellbutrin
Schizoaffective disorder
Continue home meds
BPH
Continue tamsulosin and Topamax
Chronic migraine
Continue Nurtec plus Tylenol
Chronic back pain
Hold baclofen for now
Chronic constipation
Continue home bowel regime
Full code
Lovenox
[id number]
Anticipated Discharge: Today
Subjective/Interval History
-
Date of Service: July 29, 2024
No overnight events
Objective Data
-
Labs:
Laboratory Results
07/29/24
07:07
WBC 5.9
Hgb 11.9 L
Hct 34.2 L
Plt Count 224
Sodium 144
Potassium 3.4 L
Chloride 116 H
Carbon Dioxide 21 L
BUN 11
Creatinine 0.6 L
Glucose 330 H
Calcium 8.4
Vital Signs:
Vital Signs
Temp Pulse Resp BP Pulse Ox
97.7 F 80 16 149/79 99
07/29/24 07:25 07/29/24 07:25 07/29/24 07:25 07/29/24 07:25 07/29/24 07:25
I&O
07/28/24 07/29/24 07/30/24
06:59 06:59 06:59
Intake Total 1200 / 1200
Balance 1200 / 1200
Review of Systems
-
History Source: Patient
All other systems: Reviewed and negative
Physical Exam
-
General: No Apparent Distress, Comfortable and Other (Alert, responsive, answering all questions)
HEENT: Normocephalic and Atraumatic
Respiratory: Clear to Auscultation; Negative Rales, Rhonchi or Crackles
Cardiac: Regular Rhythm and S1/S2
GI: Soft, Nontender and Nondistended
Musculoskeletal: No Edema
Neuro: Other (Presence of motor deficit on the left side, 3 x 5 motor strength on the right side, sensation intact, slurred speech resolved)
Psych: Calm
Data Reviewed
-
Labs: Labs Reviewed by me and Discussed with Physician
--- NOTE | 2024-07-29 14:49 | CM ---
Patient seen at bedside with physicians. Patient updated that he was OBS status and completed form placed on chart. All questions addressed. Patient from [facility] and [facility]. Patient for return to facility today. CM spoke with Admissions at
[facility] and she requested call to [phone]/ask for 2nd floor and fax for [phone]. CM completed transportation forms and sent to floor. Patient for return via ambulance at 15:45. CM will continue to follow for discharge planning needs.
Plan;return to SNF
[2024-07-29] MEDS: D5/0.9% SODIUM CHLORIDE IV (14:59)
[2024-07-29] MEDS: KCL 40 MEQ PO (14:59)
--- NOTE | 2024-07-29 15:05 | PTCARENOTE ---
Called [facility] [phone] asked for 2nd floor. I was tfrd and no one answered the phone, will try again before machine operator hop picker at [phone]
[2024-07-29 15:07] VITALS: BP 147/81
--- NOTE | 2024-07-29 16:02 | PTCARENOTE ---
Attempted to give report again and no answer again. Will advise crew to have facility call for report.
--- NOTE | 2024-07-29 16:03 | W.DCSUMMARY ---
Addendum entered and electronically signed by Emy Gonzalez MD 07/29/24 17:48:
Read, reviewed, and agree. See same day progress note for additional details. Time spent coordinating care, DC planning, review of DC plan of care with resident, transition of care, review of records in EMR, med rec, consults, notes, d/w
consultants, nursing, family, and CM = 20 minutes
Original Note:
Discharge Summary
Discharge Data
Date of Admission: 07/28/24
Date of Discharge: 07/29/24
-
Pending Results: No
Hospital Course
Discharging Physician : Dr Kristyn Telles, Dr Emy Gonzalez
Disposition : SNF
Primary care physician : Johnny Franco
Principal Discharge diagnosis :
Altered mental status with unknown etiology, + tricyclics on urine drug screen
Slurring of speech
Dehydration
Chronic Discharge diagnosis :
Prior history of stroke with residual left hemiparesis
Anxiety/depression
Schizoaffective disorder
BPH
Chronic migraine
Chronic back pain
Chronic constipation
Hospital Course : 59-year-old male presented to [facility] ED with a prearrival stroke alert. He was found to have slurred speech at [facility]. Workup in the ED showed head CT unremarkable, neurology was consulted and patient was
advised to continue aspirin, Plavix, atorvastatin. CTA of head/neck showed 100% occlusion of right ICA, 80% occlusion of left ICA. Patient was only arousable with physical stimuli, answering very few questions, therefore he was admitted for
observation. On the second day of hospitalization patient became more responsive and alert, was able to answer all questions. Chest x-ray was unremarkable, ABG was satisfactory. He is hemodynamically stable to be discharged to SNF. Outpatient
follow-up with vascular surgeon is recommended for further evaluation of bilateral ICA stenosis.
Important imaging findings :
07/28/[address] : No acute intracranial abnormality noted.
07/28/24-head/neck CTA- There is complete occlusion throughout the right internal carotid artery, likely chronic. There is reconstitution at the level of the intracranial bifurcation with diminutive appearance of the right anterior cerebral artery A1
segment as well as diminutive appearance throughout the right middle cerebral artery and its downstream/peripheral branches. There is severe calcific plaque involving the proximal left internal carotid artery resulting in focal up to 80% stenosis.
No additional significant vascular occlusion, aneurysm or dissection.
Procedure findings : none
Discharge Plan
-
Patient Disposition: [facility]/SNF
Discharge Diagnosis/Procedures: Altered mental status, unknown etiology, likely due to + tricyclics on urine drug screen
Slurred speech/prior history of stroke with residual left hemiparesis
Condition: Fair
Diet: Low Cholesterol
Activity: As tolerated
Driving Restrictions: As prior to admission
Bathing Restrictions: None
Referrals:
Johnny Franco DO [Family Provider] - in less than 1 week
Mane Martell MD [Active] - in two to four weeks
Additional Discharge Medication Instructions: Continue aspirin, Plavix, atorvastatin
Advised to see vascular surgeon as CTA shows 100% occlusion of right ICA, 80% left ICA occlusion.
Prescriptions:
Continued
acetaminophen 325 MG tablet
650 mg PO Q6HPRN PRN (Reason: fever > 100.4 and/or mild pain)
aspirin 81 MG tablet,chewable
81 mg PO DAILY
magnesium hydroxide 30 ML suspension
30 ml PO DAILYPRN PRN (Reason: IF NO BM IN 3 DAYS)
gemfibrozil 600 MG tablet
600 mg PO BID
bisacodyl [OneLAX Bisacodyl] 10 MG suppository
10 mg NC DAILYPRN PRN (Reason: IF MOM INEFFECTIVE)
Enema 135 ML enema
118 ml NC DAILYPRN PRN (Reason: IF DULCOLAX INEFFECTIVE)
calcium carbonate [Antacid (calcium carbonate)] 1 TABLET tablet,chewable
2 tab PO Q6HPRN PRN (Reason: indigestion)
lidocaine 4 % Adhesive Patch,Medicated
1 patch TOPICAL DAILY
fluticasone propionate 50 mcg/actuation [place],Suspension
1 spray INTRANASAL DAILY
[place] Saline Gel [place],Non-Aerosol
1 spray INTRANASAL [id number] PRN (Reason: dryness)
diclofenac sodium 1 % Gel
2 g TOPICAL HS
Nurtec ODT 75 mg Tablet,Disintegrating
75 mg PO DAILYPRN PRN (Reason: migraine)
atorvastatin 80 MG tablet
80 mg PO QPM Qty: 0 0RF
venlafaxine [Effexor XR] 75 mg Capsule,Extended Release 24hr
75 mg PO DAILY Qty: 0 0RF
polyethylene glycol 3350 17 GRAMS powder in packet
17 grams PO DAILY Qty: 0 0RF
cetirizine [Zyrtec] 10 mg Tablet
10 mg PO DAILY Qty: 0 0RF
sennosides-docusate sodium 1 TABLET tablet
1 tab PO BID Qty: 0 0RF
clopidogrel 75 MG tablet
75 mg PO DAILY Qty: 0 0RF
acetaminophen [Tylenol Extra Strength] 500 mg Tablet
1,000 mg PO DAILY Qty: 0 0RF
clindamycin phosphate 1 % Gel
1 applic TOPICAL BID Qty: 0 0RF
tamsulosin 0.4 MG capsule
0.4 mg PO HS Qty: 0 0RF
baclofen 10 mg Tablet
10 mg PO TID Qty: 0 0RF
gabapentin 300 mg Capsule
300 mg PO TID Qty: 0 0RF
celecoxib 100 mg Capsule
100 mg PO BID Qty: 0 0RF
bupropion HCl [Wellbutrin XL] 150 mg Tablet Extended Release 24 Hr
150 mg PO HS Qty: 0 0RF
topiramate [Topamax] 50 mg Tablet
50 mg PO BID Qty: 0 0RF
cholecalciferol (vitamin D3) [Vitamin D3] 25 mcg (1,000 unit) Tablet
50 mcg PO DAILY Qty: 0 0RF
Discharge Orders:
Discharge Patient (As Directed); Ordered 07/29/24
Ordered By: Kristyn Telles
Discharge Date and Time
Discharge Date/Time: 07/29/24 16:41
Print Language: DUTCH
== END 2024-07-29 16:41 ==
LOC: 4 EAST ACU 18:35
PROVIDERS: Student in an Organized Health Care Education/Training Program; ADMITTING PHYSICIAN Internal Medicine; EMERGENCY PHYSICIAN Student in an Organized Health Care Education/Training Program; FAMILY PHYSICIAN Internal Medicine
DX: R41.82 Altered mental status, unspecified (principal); Z87.891 Personal history of nicotine dependence; R29.818 Other symptoms and signs involving the nervous system; I69.354 Hemiplegia and hemiparesis following cerebral infarction affecting left non-dominant side; R47.81 Slurred speech; F41.9 Anxiety disorder, unspecified; F31.9 Bipolar disorder, unspecified; Z79.899 Other long term (current) drug therapy; F25.9 Schizoaffective disorder, unspecified; N40.0 Benign prostatic hyperplasia without lower urinary tract symptoms; K59.09 Other constipation; G43.909 Migraine, unspecified, not intractable, without status migrainosus; E86.0 Dehydration; G89.29 Other chronic pain; M54.9 Dorsalgia, unspecified; Z79.02 Long term (current) use of antithrombotics/antiplatelets; E87.6 Hypokalemia; I65.23 Occlusion and stenosis of bilateral carotid arteries
CPT/HCPCS: 70450; 70496; 70498; 71046; 80048; 80306; 81003; 81015; 82805; 84484; 85025; 85610; 85730; 87070; 87086; 87147; 92610; 93005; 99285; G0378; Q9967

== ENCOUNTER 2024-09-23 21:38 | Emergency (ER) | payer OTHER, SELFPAY ==
[2024-09-23 21:41] VITALS: BP 149/79
--- NOTE | 2024-09-23 22:33 | ED.GENMED ---
History of Present Illness
General
Chief Complaint: Fall
Source: patient
Exam Limitations: none
Time Seen by Provider: 09/23/24 22:22
History of Present Illness
History of Present Illness:
See MDM
Past History
Past History
ED Past Medical History: Asthma, CAD, COPD, CVA (Left sided paralysis), HTN, Hypercholesterolemia, [place] (X 4), Psychiatric (Anxiety, Bipolar, Depression, Schizo) and Other (Previous stroke with left hemiparesis, Parkinson's, COPD, Neuropathy,
Fracture ortibs, Chronic back pain, )
ED Past Surgical History: Cardiac (Stents X 4), Orthopedic (Neck fusion, Right hand surgery, ) and Tonsilectomy
Social History
Tobacco: Former smoker
Alcohol: None
Drug: None
Personal:
Living: long term [facility])
Employment: Not employed
Family History
Family History: Other (Stroke)
Phy Exam
Physical Exam
Physical Exam:
See MDM
Course
Orders/Labs/Results
Orders:
Orders
09/23/24 22:29
CT Cervical Spine W/o Iv Contr Urgent
Comment:
Reason For Exam: fall, neck pain
CT Head W/o Iv Contrast Urgent
Comment:
Reason For Exam: Left head injury, headache
Acetaminophen [Tylenol] 650 mg PO NOW STA
Vital Signs
Initial and Last Documented VS:
Initial Vital Signs
Temp Pulse Resp BP Pulse Ox
97.6 F 79 16 149/79 99
09/23/24 21:41 09/23/24 21:41 09/23/24 21:41 09/23/24 21:41 09/23/24 21:41
Last Documented Vital Signs
Temp Pulse Resp BP Pulse Ox
97.6 F 74 16 133/68 99
09/23/24 21:41 09/24/24 00:00 09/24/24 00:00 09/24/24 00:00 09/24/24 00:00
Procedures
Laceration Closure
Left Anterior Lateral Forehead:
Status of Wound: clean
Size of Wound in cm: 2
Description of Wound Edges: sharp
Preparation: cleaned with soap & water
Revision/Debridement: routine- no revision
Wound exploration: explored to base- no FB
Type of Closure: Dermabond-skin glue
MDM/Problems Addressed
Differential Diagnosis Includes:
HPI and MDM Narrative:
59-year-old male presenting for evaluation of slip and fall. Patient fell as he was is transitioning out of his wheelchair. He has had a prior stroke with left hemiparesis. Patient did hit his head. On exam, patient does have a small laceration
to his left forehead with surrounding hematoma. Given the injury, will obtain CT head. Cervical collar was placed prior to my assessment but patient was extremely uncomfortable with the collar and was actually trying to remove it himself. I did
remove the collar and all symptoms started to resolve. Given the mild neck pain, will obtain CT cervical spine as well
Physical exam
General: Well appearing and non-toxic
HEENT: protecting airway. 2 cm laceration to left forehead with surrounding hematoma
Neck: supple. No tenderness to carotid palpation. Mild paracervical muscular tenderness
CV: No evidence of cyanosis
Resp: No accessory muscle use
Abd: Non-distended
Extremities: No tenderness to hip palpation bilaterally. Left hand contracture
Neuro: alert. Left hemiparesis
Psych: Normal affect
Skin: Intact
Problems Addressed including Acute and Chronic Conditions affecting care:
1. Head injury
Acuity: acute
Prognosis: stable
Details: Given the injury, will obtain CT head neck
2. Scalp laceration to left forehead
Acuity: acute
Prognosis: stable
Details: Dermabond placed. Patient tolerated procedure well
Updates
CT head negative. Patient feels comfortable going
Differential Diagnosis (but not limited to): Hematoma, concussion, hemorrhage
Testing considered: Hip x-ray but no tenderness elicited
Drug therapy (if applicable): OTC meds, please see d/c instruction regarding Rx drugs
Amount and/or Complexity of Data Reviewed
Clinical info obtained from: Patient
External data reviewed: N/A
Labs I independently reviewed (but not limited to): N/A
Radiology: The CT scan was personally and independently reviewed. In addition, official CT report reviewed.
Pulse Ox: not hypoxic
EKG independently reviewed: N/A
Production Team Leader: N/A
Critical Care: N/A
Risk of Complication:
Social Determinants of health: Good social support
Discussed with other providers: N/A
Escalation of Care includes Admit/Obs: After being observed in the Emergency Department, pt stable for discharge.
Occasional wrong word or 'sound a like' substitutions may have occurred due to the inherent limitations of voice recognition software. Read the chart carefully and recognize, using context, where substitutions have occurred.
*Critical Care Note
Total Time (30-74mins, 75-104mins- exclusive of procedures): Not Applicable
ED Attending Note
-
Portions of this chart may have been created with voice recognition software.� Occasional wrong word or��sound alike� substitutions may have occurred due to the inherent limitations of voice recognition software.
Discharge Plan
Departure
Patient Disposition: Home (Routine Discharge)
Date of Disposition: 09/24/24
Time of Disposition: 00:11
Patient with high blood pressure during this ER visit?: No
Discharge Problem:
Head injury
Instructions: Laceration Repair With Glue (DC)
Prescriptions:
No Action
acetaminophen 325 MG tablet
650 mg PO Q6HPRN PRN (Reason: fever > 100.4 and/or mild pain)
aspirin 81 MG tablet,chewable
81 mg PO DAILY
magnesium hydroxide 30 ML suspension
30 ml PO DAILYPRN PRN (Reason: IF NO BM IN 3 DAYS)
gemfibrozil 600 MG tablet
600 mg PO BID
bisacodyl [OneLAX Bisacodyl] 10 MG suppository
10 mg NM DAILYPRN PRN (Reason: IF MOM INEFFECTIVE)
Enema 135 ML enema
118 ml NM DAILYPRN PRN (Reason: IF DULCOLAX INEFFECTIVE)
calcium carbonate [Antacid (calcium carbonate)] 1 TABLET tablet,chewable
2 tab PO Q6HPRN PRN (Reason: indigestion)
lidocaine 4 % Adhesive Patch,Medicated
1 patch TOPICAL DAILY
fluticasone propionate 50 mcg/actuation [place],Suspension
1 spray INTRANASAL DAILY
[place] Saline Gel [place],Non-Aerosol
1 spray INTRANASAL [id number] PRN (Reason: dryness)
diclofenac sodium 1 % Gel
2 g TOPICAL HS
Nurtec ODT 75 mg Tablet,Disintegrating
75 mg PO DAILYPRN PRN (Reason: migraine)
atorvastatin 80 MG tablet
80 mg PO QPM Qty: 0 0RF
venlafaxine [Effexor XR] 75 mg Capsule,Extended Release 24hr
75 mg PO DAILY Qty: 0 0RF
polyethylene glycol 3350 17 GRAMS powder in packet
17 grams PO DAILY Qty: 0 0RF
cetirizine [Zyrtec] 10 mg Tablet
10 mg PO DAILY Qty: 0 0RF
sennosides-docusate sodium 1 TABLET tablet
1 tab PO BID Qty: 0 0RF
clopidogrel 75 MG tablet
75 mg PO DAILY Qty: 0 0RF
acetaminophen [Tylenol Extra Strength] 500 mg Tablet
1,000 mg PO DAILY Qty: 0 0RF
clindamycin phosphate 1 % Gel
1 applic TOPICAL BID Qty: 0 0RF
tamsulosin 0.4 MG capsule
0.4 mg PO HS Qty: 0 0RF
baclofen 10 mg Tablet
10 mg PO TID Qty: 0 0RF
gabapentin 300 mg Capsule
300 mg PO TID Qty: 0 0RF
celecoxib 100 mg Capsule
100 mg PO BID Qty: 0 0RF
bupropion HCl [Wellbutrin XL] 150 mg Tablet Extended Release 24 Hr
150 mg PO HS Qty: 0 0RF
topiramate [Topamax] 50 mg Tablet
50 mg PO BID Qty: 0 0RF
cholecalciferol (vitamin D3) [Vitamin D3] 25 mcg (1,000 unit) Tablet
50 mcg PO DAILY Qty: 0 0RF
Referrals:
Johnny Franco DO [Family Provider, Internal Medicine]
Activity Restrictions/Additional Instructions:
Your wound was fixed with derma-tobar. This is a special glue that holds a wound closed similar to stitches. This type of wound closure will eventually fall off by itself and does not need to be removed. You may wash the area very gently, but do not
scrub or pick at the glue. Watch for signs of infection: fever over 100.5', increasing pain, red streaks around wound, swelling, drainage of pus, or bad smell. If any of these happen, return to ED promptly. All wounds may scar, however you may
reduce the appearance of scarring by avoiding sun exposure to the scar and applying skin moisturizer with spf protection to the scar once the wound is healed.
Interventions
Interventions:
*Risk Screen - Suicide Last Done: 09/23/24 21:41
*General Assessment Last Done: 09/23/24 21:41
*Neglect/Abuse Screening Last Done: 09/23/24 21:41
*ED- Fall Risk Assessment Last Done: 09/23/24 21:49
*ED COVID-19 Vaccine History Last Done: 09/23/24 21:41
ED-Musculoskeletal Assessment Last Done: 09/23/24 21:49
ED- Neurological Assessment Last Done: 09/23/24 21:49
ED-Skin Assessment Last Done: 09/23/24 21:51
Discharge Date and Time
Print Language: TAJIK
[2024-09-24] VITALS: BP 133/68
[2024-09-24] MEDS: TYLENOL 650 MG PO (00:01)
== END 2024-09-24 00:57 | disposition home or self-care (01) ==
LOC: EMR 21:38
PROVIDERS: EMERGENCY PHYSICIAN Student in an Organized Health Care Education/Training Program; FAMILY PHYSICIAN Internal Medicine
DX: S09.90XA Unspecified injury of head, initial encounter (principal); X58.XXXA Exposure to other specified factors, initial encounter; J44.1 Chronic obstructive pulmonary disease with (acute) exacerbation; I10 Essential (primary) hypertension; E78.00 Pure hypercholesterolemia, unspecified; F31.9 Bipolar disorder, unspecified; F41.9 Anxiety disorder, unspecified; G20.A1 Parkinson's disease without dyskinesia, without mention of fluctuations; I25.10 Atherosclerotic heart disease of native coronary artery without angina pectoris; I25.2 Old myocardial infarction; I69.354 Hemiplegia and hemiparesis following cerebral infarction affecting left non-dominant side
CPT/HCPCS: 99284; 70450; 72125

== ENCOUNTER 2024-12-05 03:53 | Emergency (ER) | payer OTHER, SELFPAY ==
[2024-12-05 03:54] VITALS: BP 137/70
--- NOTE | 2024-12-05 04:12 | EDRN ---
Per Dr Doss, pt does NOT need a 1:1. Pt does not want to be seen by crisis
--- NOTE | 2024-12-05 06:14 | ED.GENMED ---
History of Present Illness
General
Chief Complaint: Fall
Source: patient, ambulance crew and [place] [facility]
Exam Limitations: none
Time Seen by Provider: 12/05/24 04:13
Nursing documentation reviewed up to this point in time: agreed with
History of Present Illness
History of Present Illness:
This is a 59-year-old gentleman who has prior history of stroke with chronic left hemiparesis. Chronically maintained on Plavix.
He is a long-term resident of a local [place] [facility].
He presents via EMS after inadvertently rolling out of bed striking his right forehead on his wheelchair that is next to his bed. He denies loss of consciousness. He complains of laceration to his right forehead that bled a fair amount initially.
Bleeding has stopped readily with local pressure.
He has history of cervical DJD with prior history of cervical fusion and notes some chronic mid to lower neck pain. No radicular signs or symptoms.
He also complains of left wrist/hand pain. He believes he fell onto his left side.
Past History
Past History
ED Past Medical History: Asthma, CAD, COPD, CVA (Left sided paralysis), HTN, Hypercholesterolemia, [place] (X 4), Psychiatric (Anxiety, Bipolar, Depression, Schizo) and Other (Previous stroke with left hemiparesis, Parkinson's, COPD, Neuropathy,
Fracture ortibs, Chronic back pain, )
ED Past Surgical History: Cardiac (Stents X 4), Orthopedic (Neck fusion, Right hand surgery) and Tonsilectomy
Social History
Tobacco: Former smoker
Alcohol: None
Drug: None
Personal:
Living: [place] [facility] ([facility])
Employment: Not employed
Family History
Family History: Other (Stroke)
Phy Exam
Physical Exam
Physical Exam:
TRAUMA EXAM:
VITAL SIGNS: Vital signs reviewed, cooperative
DISTRESS: No active disease
EYES: Pupils reactive, no orbital trauma
NOSE: No deformity or epistaxis
FACE AND SCALP: There is a 2.5 cm laceration right forehead, deep dermal and depth with mild local soft tissue swelling, mild tenderness to palpation. There is no active bleeding. External canals no blood
NECK: Supple, no midline bony tenderness. Moderately restricted range of motion. Evidence of old horizontal surgical scar anterolateral distal neck. Lower neck region.
BACK: Back nontender, pelvis stable to compression
RESPIRATORY: No distress, breath sounds normal, no tender chest wall
CARDIAC: No murmur, pulses equal and strong
ABDOMEN: Soft nontender bowel sounds normal
SKIN: Warm and dry, normal color. Fair turgor.
EXTREMITIES: Left hemiparesis with moderate chronic contracture of left wrist and digits of the left hand. There is a small hematoma left dorsal hand with mild local tenderness to palpation. Markedly limited range of motion of wrist and digits
related to chronic flexion deformity. There is no tenderness to the elbow nor shoulder and full shoulder and elbow range of motion without difficulty nor pain.
NEUROLOGICAL: Alert, oriented x 3, chronic left hemiparesis.
PSYCH: Mood affect normal
Course
Orders/Labs/Results
Orders:
Orders
12/05/24 04:[address]
CT Cervical Spine W/o Iv Contr Urgent
Comment:
Reason For Exam: fall out of bed.post neck pain
CT Head W/o Iv Contrast Urgent
Comment:
Reason For Exam: fall out of bed, right forehead lac-on plavix
12/05/24 04:26
Hand, Left 3 View [CR Hand - Left Min 3 Views] Urgent
Comment:
Reason For Exam: fall out of bed, left dorsal hand pain
12/05/24 05:04
Olanzapine [Zyprexa] 10 mg IM NOW STA
Vital Signs
Initial and Last Documented VS:
Initial Vital Signs
Pulse Resp BP Pulse Ox
70 16 137/70 100
12/05/24 03:54 12/05/24 03:54 12/05/24 03:54 12/05/24 03:54
Last Documented Vital Signs
Temp Pulse Resp BP Pulse Ox
97.6 F 70 16 137/70 100
12/05/24 04:07 12/05/24 03:54 12/05/24 03:54 12/05/24 03:54 12/05/24 03:54
Procedures
Laceration Closure
Right Forehead:
Status of Wound: clean
Size of Wound in cm: 2.5
Description of Wound Edges: sharp
Preparation: cleaned with saline
Revision/Debridement: routine- no revision and irrigate-direct pressure
Wound exploration: explored to base- no FB
Type of Closure: Dermabond-skin glue
MDM/Problems Addressed
Differential Diagnosis Includes:
The Differential Diagnosis includes, in no particular order and is not limited to:
1. Head laceration and potential intracranial hemorrhage.
2. Cervical spine injury or aggravation of previous surgical site.
3. Left hand fracture or contusion.
4. Concussion.
5. Subdural hematoma.
6. Scalp hematoma.
7. Cervical radiculopathy.
8. Hand or wrist sprain.
9. Hemorrhagic shock due to blood-thinning medication.
10. Soft tissue injury.
Will plan on CT of the head and cervical spine. Left hand x-ray.
Will plan on Dermabond wound glue laceration repair right forehead.
Chronic conditions affecting care: Neurological disorder ( Prior CVA, cervical spine DJD with previous cervical fusion, chronically maintained on Plavix.)
*Radiology
Radiology exam reviewed: preliminary read by ED provider (left hand x-ray significantly limited due to chronic contracture deformities. No evidence of wrist nor hand fracture.) and radiology read reviewed (CT of the head and cervical spine show no
acute traumatic findings.)
*Pulse Oximetry
SaO2: 100
Oxygen Mode of Delivery: Room air
Patient hypoxic: no
*Critical Care Note
Total Time (30-74mins, 75-104mins- exclusive of procedures): Not Applicable
ED Attending Note
-
Portions of this chart may have been created with voice recognition software.� Occasional wrong word or��sound alike� substitutions may have occurred due to the inherent limitations of voice recognition software.
Discharge Plan
Departure
Patient Disposition: Senior Living/SNF
Date of Disposition: 12/05/24
Time of Disposition: 06:32
Patient with high blood pressure during this ER visit?: No
Condition: Good
Discharge Problem:
Fall out of bed, Forehead laceration, Contusion of hand, left
Instructions: Laceration Repair With Glue (DC), Contusion (DC), Preventing falls in adults
Prescriptions:
No Action
acetaminophen 325 MG tablet
650 mg PO Q6HPRN PRN (Reason: fever > 100.4 and/or mild pain)
aspirin 81 MG tablet,chewable
81 mg PO DAILY
magnesium hydroxide 30 ML suspension
30 ml PO DAILYPRN PRN (Reason: IF NO BM IN 3 DAYS)
gemfibrozil 600 MG tablet
600 mg PO BID
bisacodyl [OneLAX Bisacodyl] 10 MG suppository
10 mg ME DAILYPRN PRN (Reason: IF MOM INEFFECTIVE)
lidocaine 4 % Adhesive Patch,Medicated
1 patch TOPICAL DAILY
fluticasone propionate 50 mcg/actuation [place],Suspension
1 spray INTRANASAL DAILY
[place] Saline Gel [place],Non-Aerosol
1 spray INTRANASAL Q12H
diclofenac sodium 1 % Gel
2 g TOPICAL HS
Nurtec ODT 75 mg Tablet,Disintegrating
75 mg PO Q48H
atorvastatin 80 MG tablet
80 mg PO QPM Qty: 0 0RF
venlafaxine [Effexor XR] 75 mg Capsule,Extended Release 24hr
75 mg PO DAILY Qty: 0 0RF
polyethylene glycol 3350 17 GRAMS powder in packet
17 grams PO DAILY Qty: 0 0RF
cetirizine [Zyrtec] 10 mg Tablet
10 mg PO DAILY Qty: 0 0RF
sennosides-docusate sodium 1 TABLET tablet
1 tab PO BID Qty: 0 0RF
clopidogrel 75 MG tablet
75 mg PO DAILY Qty: 0 0RF
acetaminophen [Tylenol Extra Strength] 500 mg Tablet
1,000 mg PO DAILY Qty: 0 0RF
clindamycin phosphate 1 % Gel
1 applic TOPICAL BID Qty: 0 0RF
Patient Comments:
apply to FACE
tamsulosin 0.4 MG capsule
0.4 mg PO HS Qty: 0 0RF
baclofen 10 mg Tablet
10 mg PO TID Qty: 0 0RF
gabapentin 300 mg Capsule
300 mg PO TID Qty: 0 0RF
celecoxib 100 mg Capsule
100 mg PO BID Qty: 0 0RF
bupropion HCl [Wellbutrin XL] 150 mg Tablet Extended Release 24 Hr
150 mg PO HS Qty: 0 0RF
topiramate [Topamax] 50 mg Tablet
50 mg PO BID Qty: 0 0RF
loperamide [Imodium A-D] 2 mg Tablet
2 mg PO Q8H PRN (Reason: diarrhea)
topiramate [Topamax] 25 mg Tablet
25 mg PO BID
[place] Enema 19-7 gram/118 mL Enema
118 ml ME DAILYPRN PRN (Reason: if ME ineffective)
nystatin 100,000 unit/gram Powder
1 applic TOPICAL BID
Rx Instructions:
apply to scrotal region
cholecalciferol (vitamin D3) [Vitamin D3] 50 mcg (2,000 unit) Tablet
50 mcg PO DAILY
Biofreeze 0.2-3.5 % Gel
1 applic TOPICAL BID
Rx Instructions:
apply to back of neck
calcium carbonate [Tums 500] 500 mg calcium (1,250 mg) Tablet,Chewable
1,000 mg PO Q6H PRN (Reason: indigestion)
Referrals:
Johnny Franco DO [Family Provider, Internal Medicine] - Call in 1-3 days for appt
Interventions
Interventions:
*Risk Screen - Suicide Last Done: 12/05/24 03:54
*General Assessment Last Done: 12/05/24 03:54
*Neglect/Abuse Screening Last Done: 12/05/24 03:54
*ED- Fall Risk Assessment Last Done: 12/05/24 04:07
ED-Musculoskeletal Assessment Last Done: 12/05/24 04:10
ED- Neurological Assessment Last Done: 12/05/24 04:10
ED-Skin Assessment Last Done: 12/05/24 04:10
Discharge Date and Time
Print Language: PUERTO RICAN
[2024-12-05 06:16] VITALS: BP 128/76
--- NOTE | 2024-12-05 06:37 | EDRN ---
Report called to Cristal at [facility]. arranging d/c transport
[2024-12-05 09:50] VITALS: BP 101/65
== END 2024-12-05 11:00 ==
LOC: EMR 03:53
PROVIDERS: EMERGENCY PHYSICIAN Emergency Medicine; FAMILY PHYSICIAN Internal Medicine
DX: S01.81XA Laceration without foreign body of other part of head, initial encounter (principal); S60.222A Contusion of left hand, initial encounter; M54.2 Cervicalgia; W06.XXXA Fall from bed, initial encounter; W22.09XA Striking against other stationary object, initial encounter; G89.29 Other chronic pain; I69.354 Hemiplegia and hemiparesis following cerebral infarction affecting left non-dominant side; E78.00 Pure hypercholesterolemia, unspecified; G20.A1 Parkinson's disease without dyskinesia, without mention of fluctuations; I10 Essential (primary) hypertension; I25.10 Atherosclerotic heart disease of native coronary artery without angina pectoris; I25.2 Old myocardial infarction; Z95.5 Presence of coronary angioplasty implant and graft; Z98.1 Arthrodesis status; Z87.891 Personal history of nicotine dependence; Z79.02 Long term (current) use of antithrombotics/antiplatelets
CPT/HCPCS: 12011; 99284; 70450; 72125; 73130

== ENCOUNTER → 2025-03-10 09:23 | Outpatient (REF) | payer OTHER, SELFPAY | LOC: RAD 09:23 | PROVIDERS: ATTENDING PHYSICIAN Surgery Vascular Surgery | DX: I65.21 Occlusion and stenosis of right carotid artery (principal) | CPT/HCPCS: 93880 ==